=== PATIENT | male | born 1960 | race Caucasian/White ===

== ENCOUNTER 2020-09-08 11:04 | Inpatient (IN) | payer MEDICARE, BC, SELFPAY ==
[2020-09-08 11:13] VITALS: BP 131/92; PULSE 105; RESP 16; TEMP 36.6; O2SAT 98; BMI 22.1
--- NOTE | 2020-09-08 11:25 | W.ED.PSYCH ---
HPI - Psych General: Chief Complaint: Psychiatric Symptoms Stated Complaint: SI Time Seen by Provider: 09/08/20 11:15 History of Present Illness: HPI Narrative: The patient is a 60-year-old male with past medical history PTSD who comes to the ER complaining of suicidal ideations. Last night he had a plan to shoot himself and has access to guns. He says he has chronic pain from an injury 5 years ago and has basically hated his house for the past 5 years. His PCP prescribed him 0.25 mg Xanax approximately a month ago and he says he has been in a fog ever since then does not remember anything. He spoke to his therapist yesterday and says he felt fine after then thought about what they talked about and has felt suicidal since. He has not been admitted for mental health issues before. Denies alcohol and drugs. MD complaint: suicidal ideation and feels depressed Duration: constant History of same: Yes Relieving factors: none Context: significant life stressor Associated psychiatric symptoms: depression and suicidal ideation Associated symptoms: Reports no associated symptoms, depression and suicidal ideation If self harm: admits thoughts of self harm and has plan Review of Systems General: Reports: 10 or more systems reviewed and unremarkable except in HPI and below Const: Denies: fatigue Eyes: Denies: change in vision, blurry vision or eye redness ENMT: Denies: throat pain, swelling of lips/tongue, ear or mastoid pain or nasal congestion Card: Denies: chest pain, palpitations, irregular heart rhythm, edema, dyspnea on exertion or orthopnea Resp: Denies: dyspnea, productive cough or non-productive cough GI: Denies: abdominal pain, diarrhea or GI cramping : Denies: flank pain, urinary frequency or urinary urgency Musc: Denies: neck pain, back pain, extremity pain, joint pain, joint redness, limited range of motion or muscle weakness Skin/Breast: Denies: rash, pruritus, erythema, skin pain or skin tenderness Neuro: Denies: headache(s), numbness in extremities, weakness in extremities, sensory changes, difficulty walking, dizziness, confusion or Slurred speech present Psych: Reports: anxiety, depression and suicidal ideation Endo: Denies: polyuria All/Imm: Denies: urticaria, throat swelling or tongue swelling PFSH ED PFSH: Social History (Updated 09/08/20 @ 11:25 by John Turner RN) Smoking and tobacco status: current every day smoker cigarettes Packs smoked per day: 1 Alcohol intake: former Substance/Drug Use: former Adopted: No Caregiver/support person: No Marital status: Single Physical Exam Const: COMMON NORMALS: no acute distress, average body habitus, patient oriented x3, no limitations, healthy appearing, alert and well nourished GENERAL APPEARANCE: cooperative, comfortable, well kempt and well developed ORIENTATION/CONSCIOUSNESS: Yes awake, Yes oriented to person, Yes oriented to place and Yes oriented to time HENMT: COMMON NORMALS: normocephalic, external ears normal and Normal external nose present HEAD & SCALP: normal to inspection and normocephalic NOSE: Normal external nose present EXTERNAL EAR: Yes external ears normal MOUTH: Normal oral and palatal mucosa present THROAT: posterior oropharynx normal Eye: COMMON NORMALS: Equal, round and reactive pupils present and EOMs intact bilaterally GENERAL EYE: appearance normal, both eyes and all related structures PUPIL: Yes Equal, round and reactive pupils present Neck/C-Spine: COMMON NORMALS: full ROM, no lymphadenopathy, no meningeal signs and no JVD GENERAL: Yes normal visual inspection Lymph: LYMPHATIC: no lymphadenopathy noted Chest: COMMONS NORMALS: normal inspection of the chest and normal palpation of entire chest wall Resp: COMMON NORMALS: normal respiratory effort, No retractions, No use of accessory muscles, clear to auscultation bilaterally and percussion normal EFFORT & INSPECTION: Yes able to speak in complete sentences AUSCULTATION: clear to auscultation bilaterally PERCUSSION: percussion normal Cardio: COMMON NORMALS: no JVD, regular rate, regular rhythm, S1 normal heart sound present, S2 normal heart sound present and Peripheral pulses 2+ throughout RATE: regular rate RHYTHM: regular rhythm HEART SOUNDS: S1 normal heart sound present and S2 normal heart sound present PERIPHERAL PULSES: Peripheral pulses 2+ throughout GI: COMMON NORMALS: Normal to inspection, nondistended, normoactive bowel sounds present, Soft to palpation, non-tender and no masses INSPECTION: Yes normal to inspection PALPATION: Yes Soft to palpation : COMMON NORMALS: Yes no CVA tenderness BLADDER/KIDNEY EXAM: Yes no CVA tenderness Back/Pelvis: COMMON NORMALS: no CVA tenderness, thoracic and lumbar spine normal to inspection, no thoracic nor lumbar tenderness and thoraco-lumbar ROM normal Extremity: COMMON NORMALS: normal to inspection, full ROM, capillary refill normal, no joint enlargement and no pedal edema GENERAL: Yes normal exam except as noted Neuro: COMMON NORMALS: patient oriented x3, CN's II-XII intact bilaterally, moves all extremities, no focal motor deficits, no sensory deficits noted and gait normal SENSORIUM/ORIENTATION: Yes alert, Yes oriented to person, Yes oriented to place and Yes oriented to time MENINGEAL SIGNS: Yes no meningeal signs Psych: COMMON NORMALS: mental status grossly normal, Normal thought process present, cooperative, normal affect and speech normal APPEARANCE: Yes well kempt ATTITUDE: Yes calm SPEECH: Yes normal speech MOOD & AFFECT: Yes depressed mood and Yes anxious THOUGHT PROCESS: Normal thought process present THOUGHT CONTENT: Yes Suicidality present, No Homicidality present and No Hallucination(s) present Skin: COMMON NORMALS: no rashes or lesions noted GENERAL SKIN EXAM: no rashes or lesions noted Course Vital Signs: Vital signs: Vital Signs Temperature 97.9 F 09/08/20 11:13 Pulse Rate 105 H 09/08/20 11:13 Respiratory Rate 16 09/08/20 11:13 Blood Pressure 131/92 09/08/20 11:13 Pulse Oximetry 98 09/08/20 11:13 MDM - Psych MDM Narrative: Medical decision making narrative: The patient came to the ER depressed and has a history of PTSD complaining of suicidal ideations. Blood work is negative and he is stable for admission to the mental health unit. Dr. Singh accepts as inpatient Lab Data: Labs: Lab Results 09/08/20 09/08/20 09/08/20 Range/Units 11:45 11:45 12:52 WBC 10.9 H (4.0-10.0) 10^3/ uL RBC 4.83 (4.1-5.3) 10^6/u L Hgb 15.1 (11.7-16.6) g/dL Hct 45.2 (42.0-52.0) % MCV 93.6 (80-94) fL MCH 31.3 (28.0-34.0) pg MCHC 33.4 (30.0-36.0) g/dL RDW 13.6 (12.1-15.1) % Plt Count 277 (130-400) 10^3/c mm MPV 9.4 (7.4-10.4) fL Neut % (Auto) 76.9 % Lymph % (Auto) 12.7 % Chaves % (Auto) 7.6 % Eos % (Auto) 2.1 % Baso % (Auto) 0.5 % Neut # (Auto) 8.36 H (1.8-7.7) 10^3/u L Lymph # (Auto) 1.4 (0.8-4.8) 10^3/u L Chaves # (Auto) 0.8 (0.2-0.9) 10^3/u L Eos # (Auto) 0.2 (0.0-0.8) 10^3/u L Baso # (Auto) 0.1 (0.0-0.1) 10^3/u L Nucleated RBC % (a uto) 0 % Nucleated RBCs # 0.0 /100WBC Sodium 131 L (136-145) mmol/L Potassium 4.3 (3.5-5.1) mmol/L Chloride 95 L (98-107) mmol/L Carbon Dioxide 24 (22-29) mmol/L Anion Gap 16.3 (5-19) BUN 12 (6-20) mg/dL Creatinine 0.6 L (0.7-1.2) mg/dL GFR Calculation 138.4 H (90-130) mL/min Glucose 132 H (65-115) mg/dL Calculated Osmolal ity 274 L (285-295) mOsm/k g Calcium 8.8 (8.5-10.5) mg/dL Total Bilirubin 0.5 (0.15-1.2) mg/dL AST 21 (0-40) U/L ALT 23 (0-41) U/L Alkaline Phosphata se 141 H (40-130) IU/L Total Protein 6.7 (6.6-8.7) g/dL Albumin 4.2 (3.5-5.2) g/dL Globulin 2.5 (1.3-4.6) g/dL TSH 1.38 (0.27-4.20) uIU/ mL Urine Color Yellow (Yellow) Urine Appearance Sl hazy (CLEAR) Urine pH 6.5 (5-7) Ur Specific Gravit y 1.010 (1.005-1.030) Urine Protein Neg (Negative) Urine Glucose (UA) Norm (Normal) Urine Ketones 1+ H (Negative) Urine Blood Neg (Negative) Urine Nitrate Negative (Negative) Urine Bilirubin Neg (Negative) Urine Urobilinogen Neg (Negative) mg/dL Ur Leukocyte Cecy ase Negative (Negative) Urine RBC 5-10 H (0-2) /hpf Urine WBC 0-4 H (0-5) /hpf Ur Squamous Epith Cells 5-10 H (0-5) /hpf Amorphous Sediment Not Reportable Urine Bacteria 1+ H (NONE) /hpf Urine Mucus 1+ /hpf Salicylates < 0.3 L (3-10) mg/dL Urine Opiates Scre en (Negative) ng/mL Acetaminophen < 5.0 L (10-30) ug/mL Ur Barbiturates Sc reen (Negative) ng/mL Ur Phencyclidine S crn (Negative) ng/mL Ur Amphetamines Sc reen (Negative) ng/mL U Benzodiazepines Scrn (Negative) ng/mL Urine Cocaine Scre en (Negative) ng/mL U Marijuana (THC) Screen (Negative) ng/mL Ethyl Alcohol < 10 (0-10) mg/dL 09/08/20 Range/Units 12:52 WBC (4.0-10.0) 10^3/ uL RBC (4.1-5.3) 10^6/u L Hgb (11.7-16.6) g/dL Hct (42.0-52.0) % MCV (80-94) fL MCH (28.0-34.0) pg MCHC (30.0-36.0) g/dL RDW (12.1-15.1) % Plt Count (130-400) 10^3/c mm MPV (7.4-10.4) fL Neut % (Auto) % Lymph % (Auto) % Chaves % (Auto) % Eos % (Auto) % Baso % (Auto) % Neut # (Auto) (1.8-7.7) 10^3/u L Lymph # (Auto) (0.8-4.8) 10^3/u L Chaves # (Auto) (0.2-0.9) 10^3/u L Eos # (Auto) (0.0-0.8) 10^3/u L Baso # (Auto) (0.0-0.1) 10^3/u L Nucleated RBC % (a uto) % Nucleated RBCs # /100WBC Sodium (136-145) mmol/L Potassium (3.5-5.1) mmol/L Chloride (98-107) mmol/L Carbon Dioxide (22-29) mmol/L Anion Gap (5-19) BUN (6-20) mg/dL Creatinine (0.7-1.2) mg/dL GFR Calculation (90-130) mL/min Glucose (65-115) mg/dL Calculated Osmolal ity (285-295) mOsm/k g Calcium (8.5-10.5) mg/dL Total Bilirubin (0.15-1.2) mg/dL AST (0-40) U/L ALT (0-41) U/L Alkaline Phosphata se (40-130) IU/L Total Protein (6.6-8.7) g/dL Albumin (3.5-5.2) g/dL Globulin (1.3-4.6) g/dL TSH (0.27-4.20) uIU/ mL Urine Color (Yellow) Urine Appearance (CLEAR) Urine pH (5-7) Ur Specific Gravit y (1.005-1.030) Urine Protein (Negative) Urine Glucose (UA) (Normal) Urine Ketones (Negative) Urine Blood (Negative) Urine Nitrate (Negative) Urine Bilirubin (Negative) Urine Urobilinogen (Negative) mg/dL Ur Leukocyte Cecy ase (Negative) Urine RBC (0-2) /hpf Urine WBC (0-5) /hpf Ur Squamous Epith Cells (0-5) /hpf Amorphous Sediment Urine Bacteria (NONE) /hpf Urine Mucus /hpf Salicylates (3-10) mg/dL Urine Opiates Scre en Negative (Negative) ng/mL Acetaminophen (10-30) ug/mL Ur Barbiturates Sc reen Negative (Negative) ng/mL Ur Phencyclidine S crn Negative (Negative) ng/mL Ur Amphetamines Sc reen Negative (Negative) ng/mL U Benzodiazepines Scrn Negative (Negative) ng/mL Urine Cocaine Scre en Negative (Negative) ng/mL U Marijuana (THC) Screen Positive H (Negative) ng/mL Ethyl Alcohol (0-10) mg/dL Discharge Plan Discharge Patient Disposition: Admitted As Inpatient Clinical Impression: Suicidal ideation Condition: Stable Coding Level of Care Code 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
[2020-09-08] MEDS: nicotine 21 mg Patch 1 PATCH TRANSDERMA (12:02)
[2020-09-08 12:04] LABS: Basophils # 0.1 10^3/uL (0.0-0.1); Basophils % 0.5 %; Eosinophils # 0.2 10^3/uL (0.0-0.8); Eosinophils % 2.1 %; Hematocrit 45.2 % (42.0-52.0); Hemoglobin 15.1 g/dL (11.7-16.6); Lymphocytes # 1.4 10^3/uL (0.8-4.8); Lymphocytes % 12.7 %; Mean Corpuscular HGB Conc 33.4 g/dL (30.0-36.0); Mean Corpuscular Hemoglobin 31.3 pg (28.0-34.0); Mean Corpuscular Volume 93.6 fL (80-94); Mean Platelet Volume 9.4 fL (7.4-10.4); Monocytes # 0.8 10^3/uL (0.2-0.9); Monocytes % 7.6 %; Neutrophils # 8.36 10^3/uL (1.8-7.7); Neutrophils % 76.9 %; Nucleated Red Blood Cells % 0 %; Platelet Count 277 10^3/cmm (130-400); Red Blood Count 4.83 10^6/uL (4.1-5.3); Red Cell Distribution Width 13.6 % (12.1-15.1); White Blood Count 10.9 10^3/uL (4.0-10.0)
[2020-09-08 12:31] LABS: Alanine Aminotransferase 23 U/L (0-41); Albumin Level 4.2 g/dL (3.5-5.2); Alkaline Phosphatase 141 IU/L (40-130); Anion Gap 16.3 (5-19); Aspartate Amino Transferase 21 U/L (0-40); Blood Urea Nitrogen 12 mg/dL (6-20); Calcium 8.8 mg/dL (8.5-10.5); Carbon Dioxide 24 mmol/L (22-29); Chloride 95 mmol/L (98-107); Globulin 2.5 g/dL (1.3-4.6); Glomerular Filtration Rate 138.4 mL/min (90-130); Glucose 132 mg/dL (65-115); Osmolality Calculated 274 mOsm/kg (285-295); Potassium 4.3 mmol/L (3.5-5.1); Sodium 131 mmol/L (136-145); Thyroid Stimulating Hormone 1.38 uIU/mL (0.27-4.20); Total Bilirubin 0.5 mg/dL (0.15-1.2); Total Protein 6.7 g/dL (6.6-8.7)
[2020-09-08 12:40] LABS: Acetaminophen < 5.0 ug/mL (10-30); Alcohol Level < 10 mg/dL (0-10); Salicylate < 0.3 mg/dL (3-10)
[2020-09-08 13:13] LABS: Add Urine Microscopic? YES; Bilirubin Urine Neg (Negative); Blood Urine Neg (Negative); Glucose Urine UA Norm (Normal); Ketones Urine 1+ (Negative); Leukocyte Esterase Urine Negative (Negative); Nitrate Urine Negative (Negative); Protein Urine Neg (Negative); Urine Appearance SL Hazy (CLEAR); Urine Color Yellow (Yellow); Urobilinogen Urine Neg (Negative); pH Urine 6.5 (5-7)
[2020-09-08 13:14] LABS: Add Urine Culture? No; Bacteria Urine 1+ /hpf; Mucus Urine 1+ /hpf; WBC Urine 0-4 /hpf (0-5)
[2020-09-08 13:15] LABS: Amphetamines Screen Urine Negative (Negative); Barbiturates Screen Urine Negative (Negative); Benzodiazepines Screen Urine Negative (Negative); Cocaine Screen Urine Negative (Negative); Opiate Screen Urine Negative (Negative); PCP Screen Urine Negative (Negative); THC Screen Urine Positive (Negative)
[2020-09-08 14:04] VITALS: BP 112/75; PULSE 87; RESP 16; TEMP 37; O2SAT 95
[2020-09-08 14:39] VITALS: BP 117/80; PULSE 98; RESP 20; TEMP 36.1; O2SAT 97
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
[2020-09-08 17:49] VITALS: RESP 16; O2SAT 98
[2020-09-08] MEDS: oxyCODONE 5 mg IR Tab/Cap 20 MG PO ×2 (17:49→23:57)
[2020-09-08] MEDS: duloxetine 30 mg Capsule PO (17:51)
--- NOTE | 2020-09-08 17:56 | PC.NURSE ---
prn 1749 administered oxycodon 20mg for pt c/o pain 8/10 on pain scale. will continue to monitor pt until end of shift.
[2020-09-08] MEDS: gabapentin 400 mg Capsule 800 MG PO (20:55)
[2020-09-08 20:56] VITALS: BP 108/66; PULSE 101; RESP 15; TEMP 36.4; O2SAT 96
[2020-09-08] MEDS: nicotine 2 mg Gum BUCCAL (21:00)
--- NOTE | 2020-09-08 21:00 | PC.NURSE ---
Earle Patch removed, earle gum given to pt
[2020-09-08] MEDS: trazodone 50 mg Tablet PO (22:44)
[2020-09-08] MEDS: hyDROXYzine 25 mg Capsule 50 MG PO (22:44)
[2020-09-08 23:57] VITALS: RESP 16; O2SAT 96
[2020-09-09] VITALS (7 sets, daily range): BP systolic 101–119; BP diastolic 69–82; PULSE 80–96; RESP 15–20; TEMP 36.6–37; O2SAT 96–98
[2020-09-09] MEDS: oxyCODONE 5 mg IR Tab/Cap 20 MG PO ×4 (05:23→23:43)
[2020-09-09] MEDS: gabapentin 400 mg Capsule 800 MG PO ×3 (08:58→20:26)
[2020-09-09] MEDS: duloxetine 30 mg Capsule PO ×3 (08:58→17:11)
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
[2020-09-09] MEDS: nicotine 21 mg Patch 1 PATCH TRANSDERMA (11:30)
--- NOTE | 2020-09-09 14:06 | PC.NURSE ---
prn 1128 administered oxycodone 20mg for pt c/o all over chronic joint pain. will continue to monitor pt.
--- NOTE | 2020-09-09 21:00 | PC.NURSE ---
NICOTINE PATCH REMOVED
[2020-09-09] MEDS: trazodone 50 mg Tablet PO (23:43)
[2020-09-10] VITALS (7 sets, daily range): BP systolic 100–109; BP diastolic 66–72; PULSE 86–98; RESP 17–18; TEMP 36.8–37.4; O2SAT 93–98
[2020-09-10] MEDS: nicotine 2 mg Gum BUCCAL ×2 (00:06→05:02)
--- NOTE | 2020-09-10 00:08 | PC.NURSE ---
PM ASSESSMENT PT V/S ARE WNL, DENIES SI/HI/AH/VH, PT COMPLAINS OF PAIN OF 6 AT BASELINE, MED NURSE NOTIFIED. PT IS COOPERATIVE, CALM, AND EASY TO INTERACT WITH. THOUGHT PROCESS APPROPRIATE.
[2020-09-10] MEDS: acetaminophen 325 mg Tablet 650 MG PO ×3 (05:02→22:04)
--- NOTE | 2020-09-10 05:13 | PC.NURSE ---
PAIN PT HAS CONSTANT PAIN IN HIS HIPS, NECK, AND FEET. HE RECEIVED HIS PAIN MEDICATION AT 2343, OXYCODONE IR 20MG PO Q6H PRN, HE HAS BEEN AWAKE OVER AN HOUR, APPROACHED THE DESK WITH TEARS IN HIS EYES, AND SAID, i NEED TO TALK TO THE DOCTOR, MY PAIN IS NOT RELIEVED, THIS MEDICINE IS NOT WORKING LONG ENOUGH TO GET TO THE NEXT TIME IT IS DUE. I HURT SO BAD. NURSE GAVE PT TYLENOL 650 PO TO HELP HOLD HIM TIL HE CAN RECEIVE HIS NEXT DOSE OF OXYCODONE AT 0543. PT RETURNED TO BED, REPOSITIONED HIM WITH PILLOWS, APPLIED A HEAT COMPRESS TO THE HIP, AND HE IS RESTING. WILL CONSULT WITH MED NURSE TO REMOVE COMPRESS AND ADMINISTER PAIN MEDICATION AT THE TIME IS AVAILABLE.
[2020-09-10] MEDS: oxyCODONE 5 mg IR Tab/Cap 20 MG PO ×4 (05:47→22:55)
--- NOTE | 2020-09-10 07:38 | PC.RESP ---
SMOKING CESSATION INFORMATION SENT TO PATIENT.
[2020-09-10] MEDS: gabapentin 400 mg Capsule 800 MG PO ×3 (08:20→20:26)
[2020-09-10] MEDS: duloxetine 60 mg Capsule PO (08:20)
[2020-09-10] MEDS: nicotine 21 mg Patch 1 PATCH TRANSDERMA (09:20)
--- NOTE | 2020-09-10 12:50 | P.PN_ITS ---
Subjective NPU Subjective: Interval history: Reports some improvement in his depressive and anxiety symptoms Denies any interval reexperiencing symptoms Continues to report some difficulty with sleep Denies any interval psychotic symptoms States that he is compliant with his medication and denies any medication side effects Reports improved appetite Mental Status Exam MSE Comments: Eating in the day room, appropriately groomed and dressed wearing hospital scrubs, calm, cooperative, good eye contact Psychomotor activity is neither increased or decreased, no agitation Speech is normal rate and volume, spontaneous, fair articulation, not pressured I feel pretty good, full range of affect, not labile Alert and oriented to person, place, time, situation Memory and concentration appear to be intact per interview Thought process, linear, no flight of ideas, no looseness of associations Thought content, no delusions, no hallucinations, no suicidal or homicidal ideation Insight and judgment appear to be intact Vitals/I&O/Wt Last Vital Signs Temp 98.2 F 09/10/20 05:57 Pulse 98 09/10/20 05:57 Resp 18 09/10/20 10:47 BP 100/67 09/10/20 05:57 Pulse Ox 96 09/10/20 05:57 Data NPU : 09/08/20 11:45 09/08/20 11:45 A&P Assessment and plan (1) Suicidal ideation: Status: Acute (2) Depressive disorder: Status: Acute (3) Anxiety disorder: Status: Acute Qualifiers: Anxiety disorder type: unspecified anxiety disorder Qualified Code(s): F41.9 - Anxiety disorder, unspecified Additional A&P Information Improving mood and anxiety, denies any interval PTSD symptoms CONTINUE current medication, continue to monitor Involuntary Hold Information 96 Hour Hold: 96 Hour Involuntary Admission: No Attestations NPU Medical Necessity Statement*: Continues to require psychiatric hospitalization for medication stabilization Coding Level of Care Code 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
[2020-09-10] MEDS: duloxetine 30 mg Capsule PO (18:51)
[2020-09-11] VITALS (7 sets, daily range): BP systolic 101–108; BP diastolic 65–68; PULSE 81–88; RESP 16–18; TEMP 36.6–36.7; O2SAT 95–98
[2020-09-11] MEDS: acetaminophen 325 mg Tablet 650 MG PO (02:34)
[2020-09-11] MEDS: nicotine 2 mg Gum BUCCAL ×3 (03:28→22:37)
[2020-09-11] MEDS: oxyCODONE 5 mg IR Tab/Cap 20 MG PO ×4 (05:22→23:05)
[2020-09-11] MEDS: duloxetine 60 mg Capsule PO ×2 (08:49→17:20)
[2020-09-11] MEDS: gabapentin 400 mg Capsule 800 MG PO ×3 (08:49→20:39)
--- NOTE | 2020-09-11 10:30 | P.PN_ITS ---
Subjective NPU Subjective: Interval history: Patient mostly focused on somatic complaints but reports improved depressive and anxiety symptoms Denies any interval panic symptoms Denies any interval suicidal ideation Observed to be more interactive on the unit Reports being compliant with his medication, denies any medication side effects Mental Status Exam MSE Comments: Lying in his bed but eventually sits up for interview, polite, interactive, appropriately groomed Psychomotor activity is neither increased or decreased, no agitation Speech is normal rate and volume, spontaneous, fair articulation, not pressured I feel good, full range of affect, not labile Alert and oriented to person, place, time, situation Memory and concentration appear to be intact per interview Thought process, linear, no flight of ideas, no looseness of associations Thought content, no delusions, no hallucinations, no suicidal or homicidal ideation Insight and judgment appear to be intact Vitals/I&O/Wt Last Vital Signs Temp 98.1 F 09/11/20 06:00 Pulse 88 09/11/20 06:00 Resp 18 09/11/20 06:00 BP 101/67 09/11/20 06:00 Pulse Ox 97 09/11/20 06:00 Data NPU : 09/08/20 11:45 09/08/20 11:45 A&P Assessment and plan (1) Suicidal ideation: Status: Acute (2) Depressive disorder: Status: Acute (3) Anxiety disorder: Status: Acute Qualifiers: Anxiety disorder type: unspecified anxiety disorder Qualified Code(s): F41.9 - Anxiety disorder, unspecified Additional A&P Information Ongoing improvement INCREASE to duloxetine 60 mg twice daily targeting depressive and anxiety symptoms Involuntary Hold Information 96 Hour Hold: 96 Hour Involuntary Admission: No Attestations NPU Medical Necessity Statement*: Continues to require psychiatric hospitalization for medication stabilization Coding Level of Care Code Acute Medical Review Specialist for [facility] Fwd Diagnoses Suicidal ideation R45.851 Depressive disorder F32.9 Anxiety disorder F41.9 Anxiety disorder type: unspecified anxiety disorder
[2020-09-11] MEDS: nicotine 21 mg Patch 1 PATCH TRANSDERMA (12:27)
--- NOTE | 2020-09-11 21:00 | PC.NURSE ---
real patch removed
[2020-09-12] VITALS (7 sets, daily range): BP systolic 108–124; BP diastolic 66–77; PULSE 81–93; RESP 17–21; TEMP 36.6–36.8; O2SAT 95–98; BMI 22.1
[2020-09-12] MEDS: acetaminophen 325 mg Tablet 650 MG PO (03:23)
[2020-09-12] MEDS: nicotine 2 mg Gum BUCCAL (03:24)
[2020-09-12] MEDS: oxyCODONE 5 mg IR Tab/Cap 20 MG PO ×4 (04:57→23:05)
[2020-09-12] MEDS: gabapentin 400 mg Capsule 800 MG PO ×3 (08:05→20:28)
[2020-09-12] MEDS: duloxetine 60 mg Capsule PO ×2 (08:06→20:27)
[2020-09-12] MEDS: nicotine 21 mg Patch 1 PATCH TRANSDERMA (08:17)
--- NOTE | 2020-09-12 12:20 | PM.NPN ---
Subjective NPU Subjective: Interval history: Reports significant improvement in mood symptoms, denies any interval depressive symptoms Denies any interval suicidal ideation Reports tolerating medication change well with no reports of any medication side effects Mental Status Exam MSE Comments: Sitting in the dining room, calm, cooperative, appropriately groomed and dressed Psychomotor activity is neither increased or decreased, no agitation Speech is normal rate and volume, spontaneous, fair articulation, not pressured I feel good, full range of affect, not labile Alert and oriented to person, place, time, situation Memory and concentration appear to be intact per interview Thought process, linear, no flight of ideas, no looseness of associations Thought content, no delusions, no hallucinations, no suicidal or homicidal ideation Insight and judgment appear to be intact Vitals/I&O/Wt Last Vital Signs Temp 98.1 F 09/12/20 06:00 Pulse 81 09/12/20 06:00 Resp 18 09/12/20 11:11 BP 108/66 09/12/20 06:00 Pulse Ox 96 09/12/20 06:00 Weight last 48 hrs Weight 68.039 kg Data NPU : 09/08/20 11:45 09/08/20 11:45 A&P Assessment and plan (1) Suicidal ideation: Status: Acute (2) Depressive disorder: Status: Acute (3) Anxiety disorder: Status: Acute Qualifiers: Anxiety disorder type: unspecified anxiety disorder Qualified Code(s): F41.9 - Anxiety disorder, unspecified Additional A&P Information Improved CONTINUE current medication, continue to monitor Involuntary Hold Information 96 Hour Hold: 96 Hour Involuntary Admission: No Attestations NPU Medical Necessity Statement*: Continues to require psychiatric hospitalization for medication stabilization, coordination for safe discharge Coding Level of Care Code Acute Cold Type 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
[2020-09-13] MEDS: nicotine 2 mg Gum BUCCAL (02:54)
[2020-09-13 05:02] VITALS: RESP 20
[2020-09-13] MEDS: oxyCODONE 5 mg IR Tab/Cap 20 MG PO (05:02)
[2020-09-13 06:00] VITALS: BP 100/67; PULSE 83; RESP 20; TEMP 36.7; O2SAT 96
[2020-09-13] MEDS: duloxetine 60 mg Capsule PO (07:57)
[2020-09-13] MEDS: gabapentin 400 mg Capsule 800 MG PO (07:57)
--- NOTE | 2020-09-13 08:06 | PC.NURSE ---
AM note Patient sitting in the day room, patient is pleasant, watching TV. Denies SI,HI AH,VH
[2020-09-13] MEDS: nicotine 21 mg Patch 1 PATCH TRANSDERMA (08:55)
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
[2020-09-13 09:52] VITALS: BP 100/67; PULSE 83; RESP 20; TEMP 36.7; O2SAT 96
== END 2020-09-13 11:53 | disposition home or self-care (01) | DRG 881 ==
LOC: ER 13:42 → NP 13:43
PROVIDERS: Admitting Provider Psychiatry & Neurology Psychiatry; Emergency Provider Family Medicine; PCP Family Medicine; Visit Provider Psychiatry & Neurology Psychiatry
DX: F32.9 Major depressive disorder, single episode, unspecified (principal); R45.851 Suicidal ideations; F41.9 Anxiety disorder, unspecified; F10.21 Alcohol dependence, in remission; F17.210 Nicotine dependence, cigarettes, uncomplicated; Z79.891 Long term (current) use of opiate analgesic; G89.29 Other chronic pain
CPT/HCPCS: 80053; 80306; 80307; 81001; 84443; 85025; 99285

== ENCOUNTER → 2021-04-19 14:15 | Outpatient (BNVA) | payer MEDICARE, SELFPAY | PROVIDERS: PCP Family Medicine; Visit Provider Orthopaedic Surgery | DX: Z20.822 Contact with and (suspected) exposure to COVID-19 (principal) | CPT/HCPCS: 87635 ==

== ENCOUNTER 2021-04-25 15:23 | Observation (INO) | payer MEDICARE, BC, SELFPAY ==
[2021-04-20 13:36] VITALS: BMI 23.6
--- NOTE | 2021-04-20 14:05 | P.ANESASSM_ITS ---
Pre-Anesthetic Assessment Height/Weight: Height 1.75 m Weight 72.575 kg Operation Date: 04/25/21 09:30 Proposed Procedures p Right Total Hip Arthroplasty 28593/m87.051(Right) - Abhi John MD Familial anesthetic complications: None Was Beta Melissa taken within 24 hours: N/A Was Clonidine taken within 24 hours: N/A Social Tobacco and No alcohol Exam alert, oriented x 3 and regular rate & rhythm rhonchi Airway Submandibular: within normal limits Cervical ROM: Other (Some limitation from prior surgery) Dentition: chipped Pulmonary Chronic Obstructive Pulmonary Disease GI Gastroesophageal Reflux Disease [facility] Osteoarthritis/DJD Neuropsych Anxiety and Depression Anesthetic Plan ASA status: 3 Anesthesia: Regional (specify below) (SAB) Risk of > 500 ml blood loss (7ml/kg in children): Yes, adequate IV access and fluids planned Medications/Allergies Home Medications Medication Instructions Recorded Confirmed Last Taken Type gabapentin 800 mg tablet 800 mg PO TID tab 09/10/19 04/20/21 09/08/20 History oxycodone 20 mg tablet 20 mg PO Q6H PRN MDD 80 MG 09/08/20 04/20/21 09/08/20 History duloxetine 60 mg capsule,delayed 60 mg PO 0900,2100 #60 cap 09/13/20 04/20/21 Unknown Rx release omeprazole 20 mg tablet,delayed 20 mg PO DAILY 04/20/21 04/20/21 Unknown History release Allergies Allergy/AdvReac Type Severity Reaction Status Date / Time No Known Allergies Allergy Verified 04/20/21 13:31 REPLACED BY [facility] Anesthesia Social History Smoking and tobacco status: current every day smoker cigarettes Packs smoked per day: 1 Alcohol intake: former Adopted: No Caregiver/support person: No Marital status: Single Data Anesthesia Cardiac Studies: No Data to Display
[2021-04-25] VITALS (25 sets, daily range): BP systolic 90–148; BP diastolic 55–88; PULSE 70–106; RESP 15–20; TEMP 36.2–36.7; O2SAT 93–100
[2021-04-25] MEDS: sodium chloride 0.9% 1,000 ML 30 ML IV (08:41)
[2021-04-25] MEDS: acetaminophen 500 mg Tablet 1000 MG PO ×2 (08:42→16:25)
[2021-04-25] MEDS: CELEcoxib 200 mg Capsule 400 MG PO (08:42)
--- NOTE | 2021-04-25 10:43 | P.ANESUD_ITS ---
Pre-Anesthetic Update Pre-Anesthetic Assessment: Date of Surgery/Procedure: 04/25/21 Preop Nazanin gnosis: Avascular necrosis right hip Proposed Procedure: Operation Date: 04/25/21 12:05 Proposed Procedures p Right Total Hip Arthroplasty 54584/m87.051(Right) - Abhi John MD Any changes to Pre-Anesthetic Assessment?: No Last Intake: Intake Last Liquid Date 04/24/21 Last Liquid Time 22:00 Last Solid Date 04/24/21 Last Solid Time 22:00 Vitals: Temperature 97.7 F 04/25/21 08:17 Temperature Source Tympanic 04/25/21 08:17 Pulse Rate 78 04/25/21 08:17 Respiratory Rate 16 04/25/21 08:17 Blood Pressure 112/70 04/25/21 08:17 Blood Pressure Nani n 84 04/25/21 08:17 Pulse Oximetry 96 04/25/21 08:17 Oxygen Delivery Me thod 04/25/21 08:20 Exam: Pre-Anes Outpt Exam: alert, oriented x 3, clear to auscultation bilaterally and regular rate & rhythm Cardiac Studies: No Data to Display
--- NOTE | 2021-04-25 11:40 | W.PM.OPSFHP ---
Same Day Surgery H&P Indication for Procedure/HPI DATE OF PROCEDURE: April 25, 2021 CHIEF COMPLAINT/INDICATIONFOR SURGICAL PROCEDURE: Avascular necrosis right hip here for right total hip arthroplasty PREOP DIAGNOSIS: Avascular necrosis right hip PLANNED PROCEDURE: Operation Date: 04/25/21 12:05 Proposed Procedures p Right Total Hip Arthroplasty 44839/m87.051(Right) - Abhi John MD Medications/Allergies* Home Medications Medication Instructions Recorded Confirmed Type gabapentin 800 mg tablet 800 mg PO TID tab 09/10/19 04/25/21 History oxycodone 20 mg tablet 20 mg PO Q6H PRN MDD 80 MG 09/08/20 04/25/21 History omeprazole 20 mg tablet,delayed 20 mg PO DAILY 04/20/21 04/25/21 History release Allergies/Adverse Reactions Allergy/AdvReac Type Severity Reaction Status Date / Time No Known Allergies Allergy Verified 04/20/21 13:31 Current Medications: Generic Name Dose Route Start Last Admin Trade Name Freq PRN Reason Stop Dose Admin Sodium Chloride 1,000 mls @ 30 mls/hr 04/25/21 08:00 04/25/21 08:41 Sodium Chloride 0.9% IV 04/26/21 07:59 30 mls/hr .Q24H OLEG Administration Pertinent History/Comorbid Conditions* Social History Smoking and tobacco status: current every day smoker cigarettes Packs smoked per day: 1 Alcohol intake: former Adopted: No Caregiver/support person: No Marital status: Single Pertinent Exam Findings alert, oriented x 3, clear to auscultation bilaterally, regular rate & rhythm and operative site marked Recommendations Surgery/Procedure today Coding Level of Care Code Acute Bilingual Recruiter for Palak Schwartz
--- NOTE | 2021-04-25 14:34 | P.OP_ITS ---
Operative Report Date of procedure: April 25, 2021 Pre-op diagnosis: Preop Diagnosis Avascular necrosis right hip Post-op diagnosis: same Post-op diagnosis: Same Post-op findings: Same Procedure done: Right total hip arthroplasty Implants: 1) [place] 56 mm Trident 2 solid back acetabular shell 2) Size 8 [place] 127 degree neck angle Accolade 2 stem 3} 28mm -4 ceramic femoral head 4} MDM metal liner Specimens removed/disposition: Femoral head was sent for pathology Pathology: none sent Surgeon: Abhi John Estimated blood loss (mL): 250 Complications: None Condition: stable Disposition: PACU Procedure: The patient was taken to the operating room and anesthesia provided by the anesthesia service. The patient was placed in the lateral position on a pegboard. A timeout was performed. The patient was draped in the usual fashion. A 15 cm long incision was made beginning just proximal to the greater trochanter and extending posteriorly to a point just distal to the trochanter on the posterior border of the trochanter. Dissection was carried down with electrocautery through the subcutaneous fat to the fascia stuart which was divided proximally and distally with curved scissors. The anterior two thirds of the gluteus medius and minimus were elevated off the hip with electrocautery. The capsule was divided in a H-like fashion. The hip was dislocated and a neck cut made just above the level of the lesser trochanter. Exposure of the acetabulum was facilitated with the acetabular retractors. Remnants of labrum and peripheral osteophytes were removed with electrocautery and a rongeur. A reamer 2 mm under the size the femoral head was utilized to ream medially to the base of the palm and are. Reaming was then increased in 1 mm intervals until a healthy rim a trabecular bone was encountered. The rim was touched with the reamer the size of the final acetabular shell to be placed. A final Trident 2 acetabular cup of the same size as the final reaming was press- fit into place. The ADM liner was secured. Attention was then focused on the femur. The canal was localized with a canal finder. Broaching was then accomplished until a stable broach size was obtained. A trial reduction with the head and neck provided excellent stability. The wound was irrigated with saline and antibiotic solution. The final [place] Accolade II stem was press-fit into place. The femoral head was placed and the hip was reduced. The hip was brought through range of motion and found to be free of impingement and stable. The anterior capsule was reapproximated with 1 Ethibond. The gluteus medius and minimus were repaired through bone with 5 Ethibond and reinforced with 1 Ethibond. The fascial stuart was closed with a running 0 Stratafix suture. Deep pelvic tissues were closed with 2-0 Stratafix and the skin with a running 4-0 l Stratafix. The skin was covered with a Prineo dressing and op site dressings.
[2021-04-25] MEDS: fentaNYL 50 mcg/mL INJ 2mL IVP (14:40)
--- NOTE | 2021-04-25 14:42 | XRR_ITS ---
PROCEDURE INFORMATION: Exam: XR Right Hip Exam date and time: 04/25/2021 2:42 PM Age: 60 years old Clinical indication: Device placement; Other: Right total hip; Prior surgery; Surgery date: Post-operative (0-2 days) TECHNIQUE: Imaging protocol: XR Right hip. Views: 1 view hip with pelvis when performed. COMPARISON: MR hip RT wo con* [id number] 03/18/2021 1:58 PM FINDINGS: Bones/joints: Right hip hemiarthroplasty noted with femoral stem component in expected alignment. Osseous structures are intact. Soft tissues: Unremarkable. XR/XR hip RT 1V wo/w pel [id number] IMPRESSION: Right hip hemiarthroplasty noted in expected alignment.
[2021-04-25] MEDS: HYDROmorphone 1 mg/mL INJ 1 mL 0.5 MG IVP (14:53)
--- NOTE | 2021-04-25 16:05 | ANE.PACU2 ---
Inpatient post-anesthesia follow up: Airway intact: Yes Vital signs: Temperature 97.2 F Pulse Rate 81 Respiratory Rate 18 Blood Pressure 122/68 Pulse Oximetry 95 Oxygen Delivery Me thod Room Air Oxygen Flow Rate 6 Fraction of Inspir ed Oxygen Hydration adequate: Yes Nausea and vomiting: No Pain level: 5 Mental status: Baseline
--- NOTE | 2021-04-25 16:24 | PC.NURSE ---
received pt from PACU at 1602, this nurse went to connect the SCD machine to the pt, pt only had 1 intermittent pneumatic compression sleeve one the left lower extremity.
[2021-04-25] MEDS: morphine 4 mg/mL SDV 1 mL IVP ×5 (16:25→23:39)
[2021-04-25] MEDS: oxyCODONE 5 mg IR Tab/Cap 20 MG PO ×2 (16:26→20:38)
[2021-04-25] MEDS: nicotine 21 mg Patch 1 PATCH TRANSDERMA (18:40)
[2021-04-25] MEDS: sodium chloride 0.9% 1,000 ML 100 ML IV (19:39)
[2021-04-25] MEDS: duloxetine 60 mg Capsule PO (20:39)
[2021-04-25] MEDS: gabapentin 400 mg Capsule 800 MG PO (20:39)
[2021-04-25] MEDS: CELEcoxib 200 mg Capsule PO (20:39)
[2021-04-26] VITALS (10 sets, daily range): BP systolic 110–115; BP diastolic 70–76; PULSE 87–96; RESP 15–17; TEMP 36.6–36.7; O2SAT 94–98
[2021-04-26] MEDS: oxyCODONE 5 mg IR Tab/Cap 20 MG PO ×4 (00:47→13:48)
[2021-04-26] MEDS: acetaminophen 500 mg Tablet 1000 MG PO ×2 (01:28→09:00)
[2021-04-26] MEDS: morphine 4 mg/mL SDV 1 mL IVP ×3 (03:26→12:11)
[2021-04-26 04:34] LABS: Hemoglobin 11.9 g/dL (11.7-16.6)
[2021-04-26] MEDS: sodium chloride 0.9% 1,000 ML 100 ML IV (07:17)
[2021-04-26] MEDS: aspirin 325 mg EC Tablet PO (08:59)
[2021-04-26] MEDS: pantoprazole DR 40 mg Tablet PO (09:00)
[2021-04-26] MEDS: CELEcoxib 200 mg Capsule PO (09:00)
[2021-04-26] MEDS: gabapentin 400 mg Capsule 800 MG PO (09:35)
--- NOTE | 2021-04-26 12:26 | P.DS_ITS ---
Discharge Providers Date of Admission: 04/25/21 15:23 Date of Discharge: April 26, 2021 Attending Provider at Admission: Abhi John MD Attending Provider at Discharge: Abhi John MD Primary Care Provider: Rosalia Rendon DO Diagnoses at Discharge Discharge Diagnosis (1) Status post right hip replacement: Status: Acute (2) Avascular necrosis of right femur: Status: Resolved Reason for Visit Reason for Visit: avascular necrosis of femoral head right Hospital Course Hospital Course The patient tolerated surgery well. They remained hemodynamically stable. They was begun on aspirin and sequential compression dressing for DVT prophylaxis. The patient was mobilized with therapy beginning the day of surgery and by the first postoperative day independent with the walker. As the pain was adequately controlled and they were fully mobile they were discharged home. Physical Exam Narrative: On the day of discharge the hip incision was clean. The incision was free of drainage. They had no particular swelling about the thigh or distal. No distal neurovascular deficits were noted. Urinary Catheter Management: Alvarado: Cath Placed During This Visit: yes Reason for Continuing Indwelling Catheter: Perioperative Use in Selected Surgeries Urinary Catheter Date of Insertion: 04/25/21 Urinary Catheter Time of Insertion: 12:50 Discharge Data Studies Completed and Pending Completed Studies During Hospitalization Category Date Time Status XR hip RT 1V wo/w pel [id number] Routine Exams 04/25/21 14:42 Completed Pending at discharge Category Date Time Status Pathology: Surgical [PTH] Routine Pth 04/25/21 14:33 Received Radiology Impressions Hip X-Ray 04/25/21 14:42 IMPRESSION: Right hip hemiarthroplasty noted in expected alignment. Laboratory Results Hgb 11.9 g/dL (11.7-16.6) 04/26/21 04:21 Vitals Last Vital Signs Temp 98.0 F 04/26/21 09:07 Pulse 90 04/26/21 09:07 Resp 16 04/26/21 12:11 BP 110/76 04/26/21 09:07 Pulse Ox 94 04/26/21 12:11 Discharge Plan Discharge Patient Disposition: Home Condition: Stable Prescriptions: New oxycodone 5 mg Tablet 20 mg PO Q4H PRN (Reason: Pain) 7 Days Qty: 60 0RF aspirin 325 mg Tablet,Delayed Release (Dr/Ec) 325 mg PO DAILY 30 Days Qty: 30 0RF celecoxib 200 mg Capsule 200 mg PO Q12H 14 Days Qty: 28 0RF acetaminophen 500 mg Tablet 1,000 mg PO Q8H 14 Days Qty: 84 0RF Continued gabapentin 800 mg tablet 800 mg PO TID 0RF duloxetine 60 mg Capsule,Delayed Release(Dr/Ec) 60 mg PO 0900,2100 Qty: 60 0RF omeprazole 20 mg Tablet,Delayed Release (Dr/Ec) 20 mg PO DAILY 0RF Discontinued oxycodone 20 mg tablet 20 mg PO Q6H MDD 80 MG PRN (Reason: Pain) 0RF Discharge Orders: Discharge Order (Routine); Ordered 04/26/21 Ordered By: Abhi John Other Ambulatory Orders: DME: Walker (Order) Location: None Selected Ordered By: Abhi John Referrals: Abhi John MD [Physician] - 04/29/21 8:00 am Discharge Diet: Advance as tolerated Discharge Activity: Use walker/crutches as instructed Patient Instructions: Precautions after Total Joint Replacement Surgery (DC), Total Hip Replacement (DC), Revision Total Joint Arthroplasty (DC), Opioid Safety Discharge Attestations Time Spent in Discharge Care*: other Status at Discharge: Cognitive status at discharge: cognitively intact , Behavioral status at discharge: cooperative , Quality Metrics Clinical Quality Measures [ No reported AMI, CVA or VTE this stay] Coding Level of Care Code Acute Chg FW DC note Diagnoses Status post right hip replacement Z96.641 Avascular necrosis of right femur M87.051
== END 2021-04-26 15:55 | disposition home or self-care (01) ==
LOC: OBGYN 15:24
PROVIDERS: Admitting Provider Orthopaedic Surgery; PCP Family Medicine; Visit Provider Orthopaedic Surgery
PROC: (CPT 27130; principal; 2021-04-25 11:50)
DX: M87.051 Idiopathic aseptic necrosis of right femur (principal); J44.9 Chronic obstructive pulmonary disease, unspecified; K21.9 Gastro-esophageal reflux disease without esophagitis; F17.210 Nicotine dependence, cigarettes, uncomplicated
CPT/HCPCS: 27130; 36415; 51702; 73501; 85018; 88304; 88311; 97110; 97116; 97161; 97165; C1776; G0378; J0690; J1170; J1580; J2250; J2270; J2704; J3010; J3490; J7030

== ENCOUNTER 2021-05-03 14:15 | Emergency (ER) | payer MEDICARE, BC, SELFPAY ==
[2021-05-03 14:21] VITALS: BP 121/76; PULSE 109; RESP 16; TEMP 36.9; O2SAT 97; BMI 22.9
--- NOTE | 2021-05-03 14:36 | USCV_ITS ---
Kota Bush Age: 60 Gender: M : 1960 Exam Date: 05/03/2021 14:50 Ordering Phys: Donavan Law DO Technologist: Britany Horne Exam Location: [facility] [place] Indication: POST RT HIP SURGERY HISTORY: Post Rt. Hip surgery. Rt. leg hurts and is swollen PROCEDURES: The venous duplex Doppler examination of both lower extremities was performed in the standard fashion. The following venous structures were evaluated: common femoral vein, profunda vein, proximal portion of the greater saphenous vein, superficial femoral vein, and the popliteal vein. In addition, the posterior tibial and peroneal trunk were evaluated. Serial compression, augmentation maneuvers, and spectral Doppler flow evaluation were performed. FINDINGS: Normal 2-D Doppler and augmentation and compressibility throughout the lower extremity venous structures. Additional imaging through the proximal calf veins also reveals no thrombus. Limited evaluation of the greater saphenous vein is patent with no thrombus.. CONCLUSIONS No evidence of right lower extremity DVT. No evidence of left lower extremity DVT. Enlarged inguinal lymph nodes with fatty sean nonspecific but likely reactive Juan José Huerta MD (Electronically Signed) Final Date: 03 May 2021 17:35 S
--- NOTE | 2021-05-03 14:36 | XR_ITS ---
WS: [id number] Exam: XR chest 1V portable [id number] Date/Time of Exam: 05/03/2021 2:29 PM Reason For Exam: dyspnea/cough Comparison 06/03/2016. The lungs are clear and fully inflated. Normal cardiomediastinal silhouette. No pleural effusions. Ol d left clavicle fracture. Fusion hardware partially visualized in the lower C-spine. XR/XR chest 1V portable [id number] IMPRESSION: 1. Negative chest.
--- NOTE | 2021-05-03 14:36 | W.ED.EXTPRO ---
HPI - Extremity Problem General: Chief complaint: Extremity Problem,Nontraumatic Stated complaint: Right hip swollen after surgery Time Seen by Provider: 05/03/21 14:35 History of Present Illness: 60-year-old male presents emergency room complaining of swelling of his right foot. A week ago he had a right hip arthroplasty he has a lot of pain in the hip and discomfort. Is also complaining of palpitations and decreased urinary output despite persistent oral intake. He has not had any chest pain or shortness of breath. MD Complaint: extremity swelling and joint pain (Right hip) Onset (ago): day(s) Pain Consistency: intermittent Quality: aching Radiation: distal Relieving factors: elevation and rest Exacerbating factors: weight bearing, walking and palpation Associated symptoms: Reports arthralgias and myalgias; Deny chest pain, fever(s), rash or short of breath Context: recent surgery/procedure (Right hip surgery) Review of Systems Const: Denies: fever(s) ENMT: Denies: throat pain, ear or mastoid pain, nasal discharge or nasal congestion Card: Denies: chest pain Resp: Denies: dyspnea, productive cough or non-productive cough GI: Denies: abdominal pain, nausea, vomiting, hematemesis, coffee ground emesis, diarrhea, constipation, bloating, hematochezia or melena : Denies: flank pain, dysuria, urinary frequency or urinary urgency Skin/Breast: Denies: rash PFSH ED PFSH: Medical History BPH (benign prostatic hyperplasia) GERD without esophagitis Gout Nocturia Peripheral polyneuropathy Surgical History Hx of cervical discectomy Status post right hip replacement Social History Smoking and tobacco status: current every day smoker cigarettes Packs smoked per day: 1 Alcohol intake: former Adopted: No Caregiver/support person: No Marital status: Single Current occupation: staying with brother who has two steps with one handrail Physical Exam Const: COMMON NORMALS: no acute distress GENERAL APPEARANCE: cooperative and comfortable ORIENTATION/CONSCIOUSNESS: Yes awake, Yes oriented to person, Yes oriented to place and Yes oriented to time HENMT: COMMON NORMALS: normocephalic, atraumatic and hearing grossly normal bilaterally HEAD & SCALP: normocephalic and atraumatic Neck/C-Spine: COMMON NORMALS: no JVD Resp: COMMON NORMALS: normal respiratory effort, No retractions, No use of accessory muscles and clear to auscultation bilaterally AUSCULTATION: clear to auscultation bilaterally Cardio: COMMON NORMALS: no JVD, regular rate, regular rhythm and No murmurs present (Cardio) RATE: regular rate RHYTHM: regular rhythm GI: COMMON NORMALS: Soft to palpation and No hepatosplenomegaly present AUSCULTATION: Yes normoactive bowel sounds PALPATION: Yes Soft to palpation, No Tenderness to palpation present (GI), No Guarding due to palpation present (GI) and Yes No hepatosplenomegaly present Extremity: NARRATIVE EXTREMITY EXAM: Mild edema of the right lower extremity nonpitting. Mild calf pain no distal thigh pain. Palpable pulses. Neuro: SENSORIUM/ORIENTATION: Yes oriented to person, Yes oriented to place and Yes oriented to time Skin: COMMON NORMALS: no rashes or lesions noted GENERAL SKIN EXAM: no rashes or lesions noted Course Vital Signs: Vital signs: Vital Signs Temperature 98.5 F 05/03/21 14:21 Pulse Rate 98 05/03/21 17:32 Respiratory Rate 22 H 05/03/21 17:32 Blood Pressure 132/79 05/03/21 17:32 Pulse Oximetry 94 05/03/21 17:32 MDM - Extremity (Nontraumatic) Medical Decision Making Venous duplex lower extremity negative. Discharge home elevate leg follow-up with Ortho return if has further problems. Medical Records I reviewed the patient's medical records. Lab Data I reviewed the patient's lab results. : 05/03/21 14:35 05/03/21 14:35 Radiology Impressions Chest X-Ray 05/03/21 14:36 IMPRESSION: 1. Negative chest. Laboratory Results WBC 14.5 10^3/uL (4.0-10.0) H 05/03/21 14:35 RBC 3.98 10^6/uL (4.1-5.3) L 05/03/21 14:35 Hgb 12.7 g/dL (11.7-16.6) 05/03/21 14:35 Hct 38.5 % (42.0-52.0) L 05/03/21 14:35 MCV 96.7 fl (80-94) H 05/03/21 14:35 MCH 31.9 pg (28.0-34.0) 05/03/21 14:35 MCHC 33.0 g/dL (30.0-36.0) 05/03/21 14:35 RDW 13.9 % (12.1-15.1) 05/03/21 14:35 Plt Count 516 10^3/cmm (130-400) H 05/03/21 14:35 MPV 9.3 fL (7.4-10.4) 05/03/21 14:35 Neut % (Auto) 66.6 % 05/03/21 14:35 Lymph % (Auto) 19.3 % 05/03/21 14:35 [place] % (Auto) 7.2 % 05/03/21 14:35 Eos % (Auto) 4.6 % 05/03/21 14:35 Baso % (Auto) 0.6 % 05/03/21 14:35 Neut # (Auto) 9.66 10^3/uL (1.8-7.7) H 05/03/21 14:35 Lymph # (Auto) 2.8 10^3/uL (0.8-4.8) 05/03/21 14:35 [place] # (Auto) 1.1 10^3/uL (0.2-0.9) H 05/03/21 14:35 Eos # (Auto) 0.7 10^3/uL (0.0-0.8) 05/03/21 14:35 Baso # (Auto) 0.1 10^3/uL (0.0-0.1) 05/03/21 14:35 Nucleated RBC % (auto) 0 % 05/03/21 14:35 Nucleated RBCs # 0.0 /100WBC 05/03/21 14:35 Sodium 142 mmol/L (136-145) 05/03/21 14:35 Potassium 3.7 mmol/L (3.5-5.1) 05/03/21 14:35 Chloride 104 mmol/L (98-107) 05/03/21 14:35 Carbon Dioxide 27 mmol/L (22-29) 05/03/21 14:35 Anion Gap 14.7 (5-19) 05/03/21 14:35 BUN 12 mg/dL (6-20) 05/03/21 14:35 Creatinine 0.5 mg/dL (0.7-1.2) L 05/03/21 14:35 GFR Calculation 170.8 mL/min (90-130) H 05/03/21 14:35 Glucose 142 mg/dL (65-115) H 05/03/21 14:35 Calculated Osmolality 296 mOsm/kg (285-295) H 05/03/21 14:35 Calcium 8.6 mg/dL (8.5-10.5) 05/03/21 14:35 Total Bilirubin 0.3 mg/dL (0.15-1.2) 05/03/21 14:35 AST 23 U/L (0-40) 05/03/21 14:35 ALT 18 U/L (0-41) 05/03/21 14:35 Alkaline Phosphatase 109 IU/L (40-130) 05/03/21 14:35 Total Protein 7.3 g/dL (6.6-8.7) 05/03/21 14:35 Albumin 3.7 g/dL (3.5-5.2) 05/03/21 14:35 Globulin 3.6 g/dL (1.3-4.6) 05/03/21 14:35 Urine Color Yellow (Yellow) 05/03/21 16:11 Urine Appearance Clear (CLEAR) 05/03/21 16:11 Urine pH 7 (5-7) 05/03/21 16:11 Ur Specific [place] 1.005 (1.005-1.030) 05/03/21 16:11 Urine Protein Neg (Negative) 05/03/21 16:11 Urine Glucose (UA) Norm (Normal) 05/03/21 16:11 Urine Ketones Negative (Negative) 05/03/21 16:11 Urine Blood 2+ (Negative) H 05/03/21 16:11 Urine Nitrate Negative (Negative) 05/03/21 16:11 Urine Bilirubin Neg (Negative) 05/03/21 16:11 Urine Urobilinogen Norm mg/dL (Negative) 05/03/21 16:11 Ur Leukocyte Esterase Negative (Negative) 05/03/21 16:11 Urine RBC 5-10 /hpf (0-2) H 05/03/21 16:11 Urine WBC None /hpf (0-5) 05/03/21 16:11 Ur Squamous Epith Cells 0-4 /hpf (0-5) H 05/03/21 16:11 Amorphous Sediment Not Reportable 05/03/21 16:11 Urine Bacteria Trace /hpf (NONE) 05/03/21 16:11 Discharge Plan Discharge Patient Disposition: Home Clinical Impression: Leg edema, right Condition: Stable Prescriptions: No Action gabapentin 800 mg tablet 800 mg PO TID 0RF duloxetine 60 mg Capsule,Delayed Release(Dr/Ec) 60 mg PO 0900,2100 Qty: 60 0RF omeprazole 20 mg Tablet,Delayed Release (Dr/Ec) 20 mg PO DAILY 0RF acetaminophen 500 mg Tablet 1,000 mg PO Q8H 14 Days Qty: 84 0RF aspirin 325 mg Tablet,Delayed Release (Dr/Ec) 325 mg PO DAILY 30 Days Qty: 30 0RF celecoxib 200 mg Capsule 200 mg PO Q12H 14 Days Qty: 28 0RF Discharge Orders: Discharge ED (Routine); Ordered 05/03/21 Ordered By: Donavan Law Referrals: Rosalia Rendon DO [Primary Care Provider] - Patient Instructions: Opioid Safety Activity Restrictions/Additional Instructions: Follow-up with your orthopedic surgeon as previously planned. Elevate leg whenever possible. Coding Level of Care Code ED Derrick Follower for Palak Schwartz
[2021-05-03 14:40] VITALS: BP 139/91; PULSE 94; RESP 15; O2SAT 95
[2021-05-03 14:48] LABS: Basophils # 0.1 10^3/uL (0.0-0.1); Basophils % 0.6 %; Eosinophils # 0.7 10^3/uL (0.0-0.8); Eosinophils % 4.6 %; Hematocrit 38.5 % (42.0-52.0); Hemoglobin 12.7 g/dL (11.7-16.6); Lymphocytes # 2.8 10^3/uL (0.8-4.8); Lymphocytes % 19.3 %; Mean Corpuscular Hemoglobin 31.9 pg (28.0-34.0); Mean Corpuscular Volume 96.7 fl (80-94); Mean Platelet Volume 9.3 fL (7.4-10.4); Monocytes # 1.1 10^3/uL (0.2-0.9); Monocytes % 7.2 %; Neutrophils # 9.66 10^3/uL (1.8-7.7); Neutrophils % 66.6 %; Nucleated Red Blood Cells % 0 %; Platelet Count 516 10^3/cmm (130-400); Red Blood Count 3.98 10^6/uL (4.1-5.3); Red Cell Distribution Width 13.9 % (12.1-15.1); White Blood Count 14.5 10^3/uL (4.0-10.0)
[2021-05-03 15:15] LABS: Alanine Aminotransferase 18 U/L (0-41); Albumin Level 3.7 g/dL (3.5-5.2); Alkaline Phosphatase 109 IU/L (40-130); Anion Gap 14.7 (5-19); Aspartate Amino Transferase 23 U/L (0-40); Blood Urea Nitrogen 12 mg/dL (6-20); Calcium 8.6 mg/dL (8.5-10.5); Carbon Dioxide 27 mmol/L (22-29); Chloride 104 mmol/L (98-107); Globulin 3.6 g/dL (1.3-4.6); Glomerular Filtration Rate 170.8 mL/min (90-130); Glucose 142 mg/dL (65-115); Osmolality Calculated 296 mOsm/kg (285-295); Potassium 3.7 mmol/L (3.5-5.1); Sodium 142 mmol/L (136-145); Total Bilirubin 0.3 mg/dL (0.15-1.2); Total Protein 7.3 g/dL (6.6-8.7)
[2021-05-03 16:13] VITALS: BP 131/95; PULSE 91; RESP 21; O2SAT 96
[2021-05-03 16:34] LABS: Urine Appearance Clear (CLEAR); Urine Color Yellow (Yellow)
[2021-05-03 16:35] LABS: Add Urine Microscopic? YES; Bilirubin Urine Neg (Negative); Blood Urine 2+ (Negative); Glucose Urine UA Norm (Normal); Ketones Urine Negative (Negative); Leukocyte Esterase Urine Negative (Negative); Nitrate Urine Negative (Negative); Protein Urine Neg (Negative); Specific Gravity, Urine 1.005 (1.005-1.030); Urobilinogen Urine Norm (Negative); pH Urine 7 (5-7)
[2021-05-03 16:44] LABS: Add Urine Culture? No; Bacteria Urine TRACE /hpf; Squamous Epithelial Cell Urine 0-4 /hpf (0-5)
[2021-05-03 17:32] VITALS: BP 132/79; PULSE 98; RESP 22; O2SAT 94
== END 2021-05-03 17:36 | disposition home or self-care (01) ==
PROVIDERS: Emergency Provider Family Medicine; PCP Family Medicine
DX: R60.0 Localized edema (principal); Z79.82 Long term (current) use of aspirin; F17.210 Nicotine dependence, cigarettes, uncomplicated; Z96.641 Presence of right artificial hip joint
CPT/HCPCS: 71045; 80053; 81001; 85025; 93970; 99283

== ENCOUNTER → 2021-05-25 14:37 | Outpatient (BNVA) | payer MEDICARE, BC, SELFPAY | PROVIDERS: PCP Family Medicine; Visit Provider Orthopaedic Surgery | DX: M87.051 Idiopathic aseptic necrosis of right femur (principal); Z96.641 Presence of right artificial hip joint | CPT/HCPCS: 73502 ==

== ENCOUNTER 2021-12-02 12:04 | Emergency (ER) | payer MEDICARE, BC, SELFPAY ==
[2021-12-02 12:10] VITALS: BP 110/72; PULSE 120; RESP 18; TEMP 37.2; O2SAT 99; BMI 22.2
--- NOTE | 2021-12-02 12:25 | XR_ITS ---
WS: [id number] Left wrist, 3 views, 12/02/2021 Clinical Data: pain after fall Comparison: None. Findings: No fractures or dislocations are seen. The carpal bones are intact. There is no soft tissue swelling. The distal radius and ulna are not remarkable. XR/XR wrist LT min 3V* [id number] Impression: Negative left wrist.
--- NOTE | 2021-12-02 12:26 | W.ED.FALL ---
HPI - Fall General: Chief Complaint: Fall Stated Complaint: fall Time Seen by Provider: 12/02/21 12:25 Source: patient Mode of arrival: wheelchair Limitations: no limitations History of Present Illness: 61-year-old male presents to the ER today for left wrist pain and right knee pain after a fall yesterday. Patient reports he bent over to pickle pumper something next to his bed and caught his foot on the edge of something else and when he turned he fell. Patient reports he landed on the right knee and left wrist. Patient reports since then he has had continued pain and decreased range of motion of the left wrist. Patient reports some swelling also. Patient reports swelling of the right knee which she also admits he has had reconstruction on. Patient reports painful weightbearing. He reports the most pain is with planting and twisting. He has been taking ibuprofen at home with some improvement. Review of Systems General: Reports: 10 or more systems reviewed and unremarkable except in HPI and below PFSH ED PFSH: Medical History BPH (benign prostatic hyperplasia) GERD without esophagitis Gout Nocturia Peripheral polyneuropathy Surgical History Hx of cervical discectomy Status post right hip replacement Social History Smoking and tobacco status: current every day smoker cigarettes Packs smoked per day: 1 Alcohol intake: former Adopted: No Caregiver/support person: No Marital status: Single Current occupation: staying with brother who has two steps with one handrail Physical Exam Const: COMMON NORMALS: no acute distress, average body habitus, patient oriented x3, no limitations, healthy appearing, alert and well nourished HENMT: COMMON NORMALS: normocephalic, atraumatic and moist oral mucous membranes HEAD & SCALP: normocephalic and atraumatic Neck/C-Spine: COMMON NORMALS: full ROM Resp: COMMON NORMALS: normal respiratory effort EFFORT & INSPECTION: Yes able to speak in complete sentences Cardio: COMMON NORMALS: regular rate and regular rhythm RATE: regular rate RHYTHM: regular rhythm Back/Pelvis: COMMON NORMALS: no thoracic nor lumbar tenderness and thoraco-lumbar ROM normal Extremity: NARRATIVE EXTREMITY EXAM: Patient has mild tenderness to palpation over the distal left radius. There is mild swelling also noted there and pain with range of motion. Patient has some decreased range of motion secondary to the pain. Patient also is noted to have some mild swelling of the right knee. He has normal range of motion however pain with weightbearing. Patient is nontender palpation of the right knee. Neuro: COMMON NORMALS: patient oriented x3 SENSORIUM/ORIENTATION: Yes alert Psych: COMMON NORMALS: mental status grossly normal, Normal thought process present and cooperative THOUGHT PROCESS: Normal thought process present Skin: COMMON NORMALS: no rashes or lesions noted and no wounds GENERAL SKIN EXAM: no rashes or lesions noted Course ED course: 61-year-old male presents to the ER today for left wrist pain and right knee pain after a fall yesterday. Patient reports he bent over to pickle pumper something next to his bed and caught his foot on the edge of something else and when he turned he fell. Patient reports he landed on the right knee and left wrist. Patient reports since then he has had continued pain and decreased range of motion of the left wrist. Patient reports some swelling also. Patient reports swelling of the right knee which she also admits he has had reconstruction on. Patient reports painful weightbearing. He reports the most pain is with planting and twisting. He has been taking ibuprofen at home with some improvement. We will get an x-ray of the right knee and left wrist at this time. Vital Signs: Vital signs: Vital Signs Temperature 99.0 F 12/02/21 12:10 Pulse Rate 120 H 12/02/21 12:10 Respiratory Rate 18 12/02/21 12:10 Blood Pressure 110/72 12/02/21 12:10 Pulse Oximetry 99 12/02/21 12:10 Oxygen Delivery Me thod 12/02/21 12:10 MDM - Fall Medical Decision Making Patient presents for a fall injury that occurred yesterday. Patient has left wrist and right knee pain. We x-rayed both the left wrist and right knee and both were normal. There is some arthritis noted in the left wrist but no acute fracture. Right knee is unremarkable. I discussed findings with patient. We will place him in a Velcro wrist brace. Recommended applying ice, 20 minutes on and 20 minutes off to both the knee and the wrist. Take ibuprofen [id number] for pain. Give this 10 to 14 days if no improvement follow-up with PCP. Return to the ER with any new or worsening symptoms. Patient verbalized understanding and is in agreement with the treatment plan. Lab Data Radiology Impressions Wrist X-Ray 12/02/21 12:25 Impression: Negative left wrist. Knee X-Ray 12/02/21 12:44 Impression: 1. Negative for fracture. 2. Minimal chondral cartilage calcification medially and laterally. Critical Care Time Critical Care Time: Critical Care Time: No Discharge Plan Discharge Patient Disposition: Home Clinical Impression: Left wrist sprain Qualifiers: Encounter type: initial encounter Qualified Code(s): S63.502A - Unspecified sprain of left wrist, initial encounter Contusion of knee, right Qualifiers: Encounter type: initial encounter Qualified Code(s): S80.01XA - Contusion of right knee, initial encounter Condition: Stable Prescriptions: No Action gabapentin 800 mg tablet 800 mg PO TID duloxetine 60 mg Capsule,Delayed Release(Dr/Ec) 60 mg PO 0900,2100 Qty: 60 0RF omeprazole 20 mg Tablet,Delayed Release (Dr/Ec) 20 mg PO DAILY Discharge Orders: Discharge ED (Routine); Ordered 12/02/21 Ordered By: Cristina Castellon Referrals: Rosalia Rendon DO [Primary Care Provider] - Discharge Diet: Usual diet Discharge Activity: Increase activity as tolerated Patient Instructions: Opioid Safety, Pain Management Activity Restrictions/Additional Instructions: Wear Velcro wrist brace x1 week. Take ibuprofen for pain. Elevate right knee and apply ice to reduce swelling. Follow-up with PCP in 10 to 14 days if no improvement. Return to the ER with any new or worsening symptoms. Coding Level of Care Code ED Liquor Gallery Operator for Palak Schwartz
--- NOTE | 2021-12-02 12:44 | XR_ITS ---
WS: [id number] Right knee, 3 views, 12/02/2021 Clinical Data: pain after fall Comparison: None. Findings: No fractures or dislocations are seen. The joint spaces are normal. The patella is intact. The soft t issues are unremarkable. There is minimal chondral cartilage calcification in both the medial and lateral cartilage. XR/XR knee RT 3V* [id number] Impression: 1. Negative for fracture. 2. Minimal chondral cartilage calcification medially and laterally.
[2021-12-02 13:10] VITALS: BP 110/72; PULSE 100; RESP 18; TEMP 37.2; O2SAT 99
== END 2021-12-02 13:21 | disposition home or self-care (01) ==
PROVIDERS: Emergency Provider Physician Assistant; PCP Family Medicine
DX: S63.502A Unspecified sprain of left wrist, initial encounter (principal); S80.01XA Contusion of right knee, initial encounter; W19.XXXA Unspecified fall, initial encounter
CPT/HCPCS: 73110; 73562; 99283

== ENCOUNTER → 2021-12-12 13:00 | Outpatient (BNVA) | payer MEDICARE, BC, SELFPAY | PROVIDERS: PCP Family Medicine; Visit Provider Surgery | DX: L72.0 Epidermal cyst (principal) | CPT/HCPCS: 99203 ==

== ENCOUNTER 2022-01-26 13:30 | Outpatient (CLI) | payer MEDICARE, BC, SELFPAY ==
--- NOTE | 2022-01-26 13:40 | XR_ITS ---
WS: [email or web address] Exam: XR wrist LT min 3V* [id number] Date/Time of Exam: 01/26/2022 1:59 PM Reason For Exam: INJURY OF R WRIST comparison 12/02/2021. No fracture or dislocation. There is increased bony sclerosis of the proximal scaphoid when compared to the last exam. Moderate DJD at the CMC joint of the thumb. Normal soft tissues. Recommendations: MRI of the wrist could be helpful for further workup if thought to be clinically war ranted. XR/XR wrist LT min 3V* [id number] IMPRESSION: 1. Increased bony sclerosis of the proximal scaphoid since the previous exam. T his might be seen in early stage osteonecrosis. 2. No fracture noted. Moderate DJD at the CMC joint of the thumb.
--- NOTE | 2022-01-26 13:58 | XR_ITS ---
WS: [email or web address] Exam: XR wrist RT min 3V* [id number] Date/Time of Exam: 01/26/2022 1:58 PM Reason For Exam: Right Wrist Pain Comparison 07/03/2016. There is bony sclerosis of the proximal right scaphoid with the mild subcortical cyst formation. No f racture or dislocation. The wrist joint is well maintained. Moderate DJD of the CMC joint of the thum b. Normal soft tissues. Recommendations: MRI of the wrist could be helpful for further workup if thought to be clinically war ranted. XR/XR wrist RT min 3V* [id number] IMPRESSION: 1. Increased bony sclerosis of the proximal scaphoid since previous exam. This could represent degenerative change however early stage osteonecrosis is not ex cluded. 2. No fracture or dislocation.
== END 2022-01-26 13:31 | disposition home or self-care (01) ==
LOC: RAD 13:34
PROVIDERS: PCP Family Medicine; Visit Provider Family Medicine
DX: S69.92XD Unspecified injury of left wrist, hand and finger(s), subsequent encounter (principal); X58.XXXD Exposure to other specified factors, subsequent encounter
CPT/HCPCS: 73110

== ENCOUNTER 2022-04-10 13:44 | Outpatient (CLI) | payer MEDICARE, BC, SELFPAY ==
--- NOTE | 2022-04-10 | US_ITS ---
WS: [id number] RENAL ULTRASOUND HISTORY: HEMATURIA COMPARISON: None available. TECHNIQUE: 2-D and color Doppler imaging of the kidney submitted. Right kidney: 10.2 cm x 5.7 cm x 4.9 cm. Normal echogenicity with no hydronephrosis or mass. Left kidney: 10.1 cm x 5.3 cm x 6.8 cm. Normal echogenicity with no hydronephrosis or mass. Aorta: Normal. Urinary Bladder: Normal distention. US/US renal BI* [id number] IMPRESSION: Normal renal ultrasound.
== END 2022-04-10 13:45 | disposition home or self-care (01) ==
LOC: RAD 13:48
PROVIDERS: PCP Family Medicine; Visit Provider Family Medicine
DX: R31.0 Gross hematuria (principal)
CPT/HCPCS: 76770

== ENCOUNTER 2022-09-06 17:32 | Outpatient (CLI) | payer MEDICARE, BC, SELFPAY ==
--- NOTE | 2022-09-06 17:42 | XR_ITS ---
WS: [email or web address] Exam: XR lumbar spine 2-3V* [id number] Date/Time of Exam: 09/06/2022 5:43 PM Reason For Exam: Right foot pain No acute fracture or dislocation. Degenerative disc change at all levels. Spondylosis at all levels. Facet arthropathy at all levels. Mild levoscoliosis. Posterior osteophytes at the L4-5 level that caesar ht cause some spinal canal stenosis. XR/XR lumbar spine 2-3V* [id number] IMPRESSION: 1. No fracture or dislocation. 2. Moderately advanced degenerative changes as detailed above. Mild levoscolios is.
--- NOTE | 2022-09-06 17:43 | XR_ITS ---
WS: [email or web address] Exam: XR foot RT min 3V* [id number] Date/Time of Exam: 09/06/2022 5:43 PM Reason For Exam: Right foot pain No acute fracture or dislocation. Mild DJD at the first MP joint. No soft tissue foreign bodies are s een. XR/XR foot RT min 3V* [id number] IMPRESSION: 1. Minimal degenerative change. No fracture or other significant finding.
--- NOTE | 2022-09-06 17:43 | XR_ITS ---
WS: [email or web address] Exam: XR foot LT min 3V* [id number] Date/Time of Exam: 09/06/2022 5:43 PM Reason For Exam: Lower back pain No acute fracture or dislocation. Degenerative changes in the IP joints and first MP joint. No soft t issue foreign bodies. Large plantar heel spur. XR/XR foot LT min 3V* [id number] IMPRESSION: 1. Degenerative changes. No fracture or other significant finding.
== END 2022-09-06 17:33 | disposition home or self-care (01) ==
PROVIDERS: PCP Family Medicine; Visit Provider Family Medicine
DX: M54.50 Low back pain, unspecified (principal); M19.072 Primary osteoarthritis, left ankle and foot; M19.071 Primary osteoarthritis, right ankle and foot
CPT/HCPCS: 72100; 73630

== ENCOUNTER → 2022-10-30 08:12 | Outpatient (BNVA) | payer MEDICARE, BC, SELFPAY | PROVIDERS: PCP Family Medicine; Visit Provider Podiatrist Foot & Ankle Surgery | DX: Z91.81 History of falling (principal); R26.81 Unsteadiness on feet; M20.32 Hallux varus (acquired), left foot; M20.42 Other hammer toe(s) (acquired), left foot | CPT/HCPCS: 99204 ==

== ENCOUNTER → 2022-12-25 07:40 | Outpatient (BNVA) | payer MEDICARE, BC, SELFPAY | PROVIDERS: PCP Family Medicine; Visit Provider Podiatrist Foot & Ankle Surgery | DX: R09.89 Other specified symptoms and signs involving the circulatory and respiratory systems; M20.42 Other hammer toe(s) (acquired), left foot; M20.32 Hallux varus (acquired), left foot; M21.372 Foot drop, left foot | CPT/HCPCS: 99213 ==

== ENCOUNTER 2023-01-12 09:38 | Outpatient (CLI) | payer MEDICARE, BC, SELFPAY ==
--- NOTE | 2023-01-12 10:00 | USCV_ITS ---
Eleazar Kota Age: 62 Gender: M : 1960 Exam Date: 01/12/2023 10:20 Ordering Phys: Mikel Helms DPM Technologist: Lori Romero [place] [facility] [place]: lower extremity pain and weakness, decreased pulses RIGHT LEFT Brachial 112.00 mmHg Brachial 110.00 mmHg Pressure (mmHg) Waveform Pressure (mmHg) Waveform 100.00 Above Knee 106.00 88.00 Below Knee 105.00 84.00 INFORMATICA MDM DEVELOPER 79.00 51.00 DPA 80.00 0.75 Ankle/Brachial Index 0.71 0.65 Pre-Exercise Toe/Brachial Index 0.57 FINDINGS Resting JUNO 0.75 on the right and 0.7 normal on the left Resting TBI of 0.65 on the right and 0.57 on the left PVR waveforms showing slight blunting of the dicrotic notch CONCLUSIONS Abnormal resting ABIs and TBIs and PVR waveforms bilaterally suggesting mild to moderate peripheral arterial disease Dr Darlin Diaz MD [facility] (Electronically Signed) Final Date: 15 January 2023 09:23 S
== END 2023-01-12 09:39 | disposition home or self-care (01) ==
LOC: RAD 09:39
PROVIDERS: PCP Family Medicine; Visit Provider Podiatrist Foot & Ankle Surgery
DX: R09.89 Other specified symptoms and signs involving the circulatory and respiratory systems (principal); I73.9 Peripheral vascular disease, unspecified
CPT/HCPCS: 93923

== ENCOUNTER 2023-02-06 09:17 | Outpatient (CLI) | payer MEDICARE, BC, SELFPAY ==
--- NOTE | 2023-02-06 09:23 | CT_ITS ---
WS: [email or web address] CT ANGIOGRAPHY OF THE ABDOMINAL AORTA WITH RUNOFF TO THE ANKLES HISTORY: PVD TECHNIQUE: Arterial injection is performed during imaging to evaluate the aorta and runoff vessels to the ankles. MIP and volume rendering imaging has also been performed. All images are reviewed. All C T scans at [facility] use at least one of these dose optimization techniques: automated exposu re control; mA and/or kV adjustment per patient size (includes targeted exams where dose is matched t o clinical indication); or iterative reconstruction. Contrast: Omnipaque 350; 100 mL IV. DLP: 1372.22 mGy.cm COMPARISON: No similar studies. Aorta: Moderate atherosclerotic plaque. There is mild diffuse intimal thickening and noncontiguous ca lcification in the wall. No aneurysm. Celiac axis and SMA are patent. No renal artery stenosis. SHERRI i s patent. RIGHT lower extremity arterial system: RIGHT common, internal and external iliac arteries are patent. Increased plaque in the internal iliac artery but no occlusion. Femoral artery, SFA and deep profund a are enhancing. Small caliber mid to distal SFA becomes occluded distally, proximal to the Pratik's canal. There are numerous collateral vessels. Reconstitution of the popliteal artery. Normal size pop liteal artery. Three-vessel runoff to the ankle is moderate. LEFT lower extremity arterial system: Common, internal and external iliac arteries are patent. Slight ly more plaque and intimal thickening on the LEFT as compared to the RIGHT. Focal ulcerated plaque pr oximal LEFT external iliac artery with mild stenosis. Stenosis less than 50%. Common femoral artery, bifurcation into the SFA and deep profunda is intact with good enhancement. Occluded distal SFA near Pratik's canal with numerous collaterals. Reconstitution near the popliteal fossa. Popliteal artery i s small caliber. Tibioperoneal trunk is patent. Occluded peroneal artery proximally. Very small calib er anterior tibial artery. The distal peroneal artery is attempting reconstitution. Best flow to the ankle is through the posterior tibial artery. Motion artifact at the lung bases. Normal size liver. Negative gallbladder. Negative spleen and pancr eas. No adrenal mass. Kidneys are enhancing normally. No adenopathy or GI tract obstruction. Mild dis jesus diverticular disease. Prior RIGHT hip arthroplasty. LEFT hip osteonecrosis. IMPRESSION: 1. Complete occlusion mid to distal RIGHT SFA just proximal to Pratik's canal. Reconstitution of the popliteal artery. 2. Three-vessel runoff to the ankle is moderate. 3. Occluded distal LEFT SFA near Pratik's canal. Attempted reconstitution through a small caliber pop liteal artery. 4. Very small caliber with proximal occlusion of the LEFT peroneal artery. Small caliber LEFT anterio r tibial artery. 5. Vessel runoff to the ankle on the LEFT is via the posterior tibial artery. 6. LEFT hip osteonecrosis
[2023-02-06 10:14] LABS: Blood Urea Nitrogen 8 mg/dL (8-23); Glomerular Filtration Rate 137.4 mL/min (90-130)
[2023-02-06] MEDS: iohexol 350 mg/mL 500 mL Btl (per mL) IV (10:31)
== END 2023-02-06 09:18 | disposition home or self-care (01) ==
LOC: RAD 09:18
PROVIDERS: Radiology Diagnostic Radiology; PCP Family Medicine; Visit Provider Family Medicine
DX: I70.203 Unspecified atherosclerosis of native arteries of extremities, bilateral legs (principal); I70.92 Chronic total occlusion of artery of the extremities; M87.9 Osteonecrosis, unspecified
CPT/HCPCS: 75635; 82565; 84520; Q9967

== ENCOUNTER 2023-02-20 07:48 | Outpatient (CLI) | payer MEDICARE, BC, SELFPAY ==
--- NOTE | 2023-02-20 07:52 | MR_ITS ---
WS: [email or web address] MRI LUMBAR SPINE NONCONTRAST HISTORY: CHRONIC LOW BACK PAIN COMPARISON: None available. TECHNIQUE: Sagittal and axial multisequence imaging is submitted. Most surgical fusion in the cervical spine. Multilevel facet disease and disc disease in the cervical and thoracic spines. Mild LEFT curvature lumbar spine. Disc spaces are narrowed and desiccated throughout the lumbar spine with fatty replacement of the mar row. There is osteophytosis at all levels and facet arthritis. Most significant disc space narrowing at L4-5. Conus terminates normally at L1-2 disc level. L1-L2: Diffuse annular disc bulging asymmetric to the LEFT. Mild bilateral foraminal stenosis. L2-L3: Diffuse annular disc bulging, osteophytic ridging with facet and ligamentum flavum hypertrophy . Mild central with moderate bilateral subarticular recess and foraminal stenosis. Slightly greater s tenosis RIGHT foramen. Suspect there is a RIGHT foraminal disc protrusion contributing to the stenosi s. L3-L4: Diffuse annular disc bulging with ligamentum flavum and facet arthritis. Mild central, bilater al subarticular recess and foraminal stenosis. Mild disc encroachment upon the traversing L4 nerve ro ots. L4-L5: Diffuse annular disc bulging, osteophytic ridging with moderate facet and ligamentum flavum hy pertrophy. Moderate bilateral foraminal stenosis. There is subarticular recess encroachment. L5-S1: Diffuse annular disc bulging with facet and ligamentum flavum hypertrophy. Disc encroaches and contacts the S1 nerve roots. Mild RIGHT and moderate LEFT foraminal stenosis. Paravertebral soft tissues are normal. IMPRESSION: 1. Moderate degenerative disc and facet arthritis throughout the lumbar spine. 2. L2-3: Mild central with moderate bilateral subarticular recess and foraminal stenosis. Greater nat nosis on the RIGHT. 3. L3-4: Mild central, bilateral subarticular recess and foraminal stenosis. 4. L4-5: Moderate bilateral foraminal stenosis and subarticular recess encroachment. 5. L5-S1: Mild RIGHT and moderate LEFT foraminal stenosis with mild disc encroachment upon the S1 ner ve roots bilaterally.
== END 2023-02-20 07:49 | disposition home or self-care (01) ==
LOC: RAD 07:49
PROVIDERS: PCP Family Medicine; Visit Provider Family Medicine
DX: M51.36 Other intervertebral disc degeneration, lumbar region (principal); M47.816 Spondylosis without myelopathy or radiculopathy, lumbar region; M48.07 Spinal stenosis, lumbosacral region
CPT/HCPCS: 72148

== ENCOUNTER → 2023-02-26 13:53 | Outpatient (BNVA) | payer MEDICARE, BC, SELFPAY | PROVIDERS: PCP Family Medicine; Visit Provider Podiatrist Foot & Ankle Surgery | DX: M20.42 Other hammer toe(s) (acquired), left foot (principal); M20.32 Hallux varus (acquired), left foot; R09.89 Other specified symptoms and signs involving the circulatory and respiratory systems; M21.372 Foot drop, left foot | CPT/HCPCS: 99213 ==

== ENCOUNTER 2023-06-16 14:24 | Emergency (ER) | payer MEDICARE, BC, SELFPAY ==
[2023-06-16 14:27] VITALS: BP 112/74; PULSE 97; RESP 16; TEMP 36.9; O2SAT 98; BMI 16.7
[2023-06-16 14:56] LABS: Basophils # 0.1 10^3/uL (0.0-0.1); Basophils % 0.7 %; Eosinophils # 0.2 10^3/uL (0.0-0.8); Eosinophils % 2.3 %; Hematocrit 44.3 % (37-53); Lymphocytes # 1.7 10^3/uL (0.8-4.8); Mean Corpuscular HGB Conc 33.9 g/dL (30-55); Mean Corpuscular Hemoglobin 31.5 pg (27-33); Mean Corpuscular Volume 93.1 fl (82-101); Mean Platelet Volume 9.7 fL (7.4-10.4); Monocytes # 0.6 10^3/uL (0.2-0.9); Neutrophils % 70.7 %; Nucleated Red Blood Cells % 0 %; Platelet Count 275 10^3/cmm (157-399); Red Blood Count 4.76 10^6/uL (3.85-5.65); Red Cell Distribution Width 13.2 % (12.1-15.1); White Blood Count 9.05 10^3/uL (3.29-11.43)
[2023-06-16] MEDS: sodium chloride 0.9% 1,000 ML 999 ML IV (15:07)
[2023-06-16] MEDS: ketorolac 30 mg/mL INJ IVP (15:11)
[2023-06-16] MEDS: diphenhydrAMINE 50 mg/mL SDV 1mL IVP (15:12)
[2023-06-16 15:14] LABS: Alanine Aminotransferase 10 U/L (0-41); Albumin Level 4.3 g/dL (3.5-5.2); Alkaline Phosphatase 131 U/L (40-130); Anion Gap 15.5 (5-19); Aspartate Amino Transferase 12 U/L (0-40); Blood Urea Nitrogen 5 mg/dL (8-23); Calcium 9.3 mg/dL (8.5-10.5); Carbon Dioxide 29 mmol/L (22-29); Chloride 101 mmol/L (98-107); Creatinine Clr Calc Pharmacy 92.3981; Globulin 3.1 g/dL (1.3-4.6); Glomerular Filtration Rate 137.4 mL/min (90-130); Glucose 121 mg/dL (65-115); Osmolality Calculated 293 mOsm/kg (285-295); Potassium 3.5 mmol/L (3.5-5.1); Sodium 142 mmol/L (136-145); Total Bilirubin 0.4 mg/dL (0.15-1.2); Total Protein 7.4 g/dL (6.6-8.7)
--- NOTE | 2023-06-16 15:58 | ED_ITS ---
HPI - Headache 2 General: Chief Complaint: Headache Stated Complaint: ringing in ears, headache, n/v Time Seen by Provider: 06/16/23 14:41 Source: patient Mode of arrival: ambulatory History of Present Illness: 68-year-old male presents emergency room with complaint of headache tinnitus this has been going on evidently for years. He states he does not feel like he is able to eat and is lost some weight. He has had a little bit of cough and shortness of breath he is a former smoker now he just smokes marijuana he says this actually is only thing that helps him. He is nauseous frequently and occasionally has some vomiting he has not had any diarrhea. No hematochezia melena hematemesis or coffee-ground emesis MD elicited complaint: headache Onset (ago): minute(s) Onset description: suddenly Exacerbating factors: none Relieving factors: nothing Associated symptoms: Reports nausea and vomiting; Deny chest pain, confusion, cough, diaphoresis, eye pain, eye redness, fever(s), lightheadedness, loss of vision, malaise, neck stiffness, numbness, paresthesias, photophobia, pre-syncope, rash, seizures, short of breath, sound sensitivity, syncope or weakness Treatments prior to arrival: none Review of Systems 2 Const: Denies: fever(s), chills, malaise or diaphoresis ENMT: Reports: tinnitus Card: Denies: chest pain, lightheadedness, syncope or pre-syncope Resp: Reports: dyspnea and non-productive cough GI: Reports: nausea and vomiting; Denies: abdominal pain : Denies: dysuria, urinary frequency or urinary urgency Musc: Denies: neck pain or back pain Skin/Breast: Denies: rash Neuro: Reports: headache(s); Denies: confusion PFSH ED 2 PFSH: Medical History Cannabis use disorder, mild, abuse Psychiatric care Nocturia BPH (benign prostatic hyperplasia) Gout GERD without esophagitis Peripheral polyneuropathy Surgical History Hx of cervical discectomy Status post right hip replacement Social History Smoking and tobacco/nicotine status: current every day tobacco/nicotine user cigarettes Packs smoked per day: 1 Alcohol intake: former Substance/Drug Use: former Adopted: No Caregiver/support person: No Marital status: Single Current occupation: staying with brother who has two steps with one handrail Physical Exam 2 Const: COMMON NORMALS: no acute distress GENERAL APPEARANCE: cooperative and comfortable ORIENTATION/CONSCIOUSNESS: Yes awake, Yes oriented to person, Yes oriented to place and Yes oriented to time HENMT: COMMON NORMALS: normocephalic, atraumatic and hearing grossly normal bilaterally HEAD & SCALP: normocephalic and atraumatic Eye: DIRECT OPHTHALMOSCOPY: No photophobia Resp: COMMON NORMALS: normal respiratory effort, No retractions, No use of accessory muscles and clear to auscultation bilaterally AUSCULTATION: clear to auscultation bilaterally Cardio: COMMON NORMALS: regular rate, regular rhythm and No murmurs present (Cardio) RATE: regular rate RHYTHM: regular rhythm GI: COMMON NORMALS: Soft to palpation and No hepatosplenomegaly present A USCULTATION: Yes normoactive bowel sounds PALPATION: Yes Soft to palpation, No Tenderness to palpation present (GI), No Guarding due to palpation present (GI) and Yes No hepatosplenomegaly present Extremity: COMMON NORMALS: normal to inspection, capillary refill normal, no clubbing, cyanosis or edema, no calf tenderness and no pedal edema Neuro: SENSORIUM/ORIENTATION: Yes oriented to person, Yes oriented to place and Yes oriented to time Skin: COMMON NORMALS: no rashes or lesions noted GENERAL SKIN EXAM: no rashes or lesions noted Course 2 Vital Signs: Vital signs: Vital Signs Temperature 98.4 F 06/16/23 14:27 Pulse Rate 97 06/16/23 14:27 Respiratory Rate 16 06/16/23 14:27 Blood Pressure 112/74 06/16/23 14:27 Pulse Oximetry 98 06/16/23 14:27 Oxygen Delivery Me thod Room Air 06/16/23 14:27 MDM - Headache Medical Decision Making No acute findings on the labs CT head or chest x-ray. He has no focal neurologic deficits. He is a former drinker he assures me he has not been drinking recently recently did begin using a marijuana regularly. Discussed with him that this may contribute to some of his symptoms. No acute findings and no emergent findings are found at this time I would recommend though that he follow-up with a primary care doctor or internal medicine for further evaluation. Medical Records I reviewed the patient's medical records. Lab Data I reviewed the patient's lab results. 06/16/23 14:48 06/16/23 14:48 Radiology Impressions Chest X-Ray 06/16/23 16:13 IMPRESSION: No acute findings. Head CT 06/16/23 16:13 IMPRESSION: No acute intracranial abnormality. Laboratory Results WBC 9.05 10^3/uL (3.29-11.43) 06/16/23 14:48 RBC 4.76 10^6/uL (3.85-5.65) 06/16/23 14:48 Hgb 15.00 g/dL (11.27-16.99) 06/16/23 14:48 Hct 44.3 % (37-53) 06/16/23 14:48 MCV 93.1 fl (82-101) 06/16/23 14:48 MCH 31.5 pg (27-33) 06/16/23 14:48 MCHC 33.9 g/dL (30-55) 06/16/23 14:48 RDW 13.2 % (12.1-15.1) 06/16/23 14:48 Plt Count 275 10^3/cmm (157-399) 06/16/23 14:48 MPV 9.7 fL (7.4-10.4) 06/16/23 14:48 Neut % (Auto) 70.7 % 06/16/23 14:48 Lymph % (Auto) 19.0 % 06/16/23 14:48 [place] % (Auto) 7.0 % 06/16/23 14:48 Eos % (Auto) 2.3 % 06/16/23 14:48 Baso % (Auto) 0.7 % 06/16/23 14:48 Neut # (Auto) 6.40 10^3/uL (1.8-7.7) 06/16/23 14:48 Lymph # (Auto) 1.7 10^3/uL (0.8-4.8) 06/16/23 14:48 [place] # (Auto) 0.6 10^3/uL (0.2-0.9) 06/16/23 14:48 Eos # (Auto) 0.2 10^3/uL (0.0-0.8) 06/16/23 14:48 Baso # (Auto) 0.1 10^3/uL (0.0-0.1) 06/16/23 14:48 Nucleated RBC % (auto) 0 % 06/16/23 14:48 Nucleated RBCs # 0.0 /100WBC 06/16/23 14:48 Sodium 142 mmol/L (136-145) 06/16/23 14:48 Potassium 3.5 mmol/L (3.5-5.1) 06/16/23 14:48 Chloride 101 mmol/L (98-107) 06/16/23 14:48 Carbon Dioxide 29 mmol/L (22-29) 06/16/23 14:48 Anion Gap 15.5 (5-19) 06/16/23 14:48 BUN 5 mg/dL (8-23) L 06/16/23 14:48 Creatinine 0.6 mg/dL (0.7-1.2) L 06/16/23 14:48 GFR Calculation 137.4 mL/min (90-130) H 06/16/23 14:48 Glucose 121 mg/dL (65-115) H 06/16/23 14:48 Calculated Osmolality 293 mOsm/kg (285-295) 06/16/23 14:48 Calcium 9.3 mg/dL (8.5-10.5) 06/16/23 14:48 Total Bilirubin 0.4 mg/dL (0.15-1.2) 06/16/23 14:48 AST 12 U/L (0-40) 06/16/23 14:48 ALT 10 U/L (0-41) 06/16/23 14:48 Alkaline Phosphatase 131 U/L (40-130) H 06/16/23 14:48 Total Protein 7.4 g/dL (6.6-8.7) 06/16/23 14:48 Albumin 4.3 g/dL (3.5-5.2) 06/16/23 14:48 Globulin 3.1 g/dL (1.3-4.6) 06/16/23 14:48 All radiology interpretation(s) finalized by discharge Discharge Plan Discharge Patient Disposition: Home Clinical Impression: Headache, Tinnitus Condition: Stable Prescriptions: No Action oxycodone 20 mg tablet 20 mg PO Q6H (DME) MORE balance brace to left See Rx Instructions .Route .MEDSUPPLY Qty: 1 0RF Rx Instructions: As directed by [facility] cyclobenzaprine 10 mg tablet 10 mg PO TID PRN (Reason: Pain) clopidogrel 75 mg tablet 75 mg PO DAILY sertraline 100 mg tablet 200 mg PO DAILY Discharge Orders: Discharge ED (Routine); Ordered 06/16/23 Ordered By: Donavan Law Referrals: Rosalia Rendon, [Primary Care Provider] - Discharge Diet: Usual diet Discharge Activity: Increase activity as tolerated Patient Instructions: Opioid Safety, Pain Management Activity Restrictions/Additional Instructions: Thank you for choosing [facility] for your healthcare needs today. Please realize this is an emergency room and that we are providing you with a medical screening exam and this may not be complete and all inclusive of all the testing and or work up that you may need to determine your ailment or severity of your illness. It is very important that you follow up as instructed or that you return to the Emergency Department should you have concerns or if your condition changes or worsens in any way. You are seen today for complaints of headache with tinnitus (ringing in ears) nausea and vomiting unexplained weight loss. Your laboratory test did not show any emergent conditions CT of the head and chest x-ray were normal. Will discharge you home recommend you follow-up with your primary care doctor for further evaluation for your symptoms. 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
--- NOTE | 2023-06-16 16:13 | XRR_ITS ---
PROCEDURE INFORMATION: Exam: XR Chest Exam date and time: 06/16/2023 4:16 PM Age: 62 years old Clinical indication: Cough and dyspnea; Smoker's cough; Patient HX: Dyspnea; Cough; Ears ringing TECHNIQUE: Imaging protocol: Radiologic exam of the chest. Views: 1 view. COMPARISON: CR XR chest 1V portable [id number] 05/03/2021 2:49 PM FINDINGS: Lungs: Unremarkable. No consolidation or mass. Pleural spaces: Unremarkable. No pleural effusion. No pneumothorax. Heart/Mediastinum: Unremarkable. No cardiomegaly. Bones/joints: Unremarkable. XR/XR chest 1V portable [id number] IMPRESSION: No acute findings.
--- NOTE | 2023-06-16 16:13 | CTR_ITS ---
PROCEDURE INFORMATION: Exam: CT Head Without Contrast Exam date and time: 06/16/2023 4:26 PM Age: 62 years old Clinical indication: Pain; Headache; Additional info: Headache tinnitus TECHNIQUE: Imaging protocol: Computed tomography of the head without contrast. Radiation optimization: All CT scans at this facility use at least one of these dose optimization techniques: automated exposure control; mA and/or kV adjustment per patient size (includes targeted exams where dose is matched to clinical indication); or iterative reconstruction. COMPARISON: CT cervical spin wo con* [id number] 07/18/2016 11:51 AM RADIATION DOSE METRICS: Total DLP (mGy-cm): 1047.78 FINDINGS: Brain: Normal. No hemorrhage. Unremarkable white matter. No mass effect or acute infarct. Cerebral ventricles: No ventriculomegaly. No midline shift. Paranasal sinuses: Visualized sinuses are unremarkable. No fluid levels. Mastoid air cells: Visualized mastoid air cells are well aerated. Bones/joints: Unremarkable. No acute fracture. Soft tissues: Unremarkable. CT/CT head wo con* [id number] IMPRESSION: No acute intracranial abnormality.
[2023-06-16 17:22] VITALS: BP 115/76; PULSE 89; RESP 16; TEMP 36.9; O2SAT 99
== END 2023-06-16 17:23 | disposition home or self-care (01) ==
PROVIDERS: Emergency Provider Family Medicine; PCP Family Medicine
DX: R51.9 Headache, unspecified (principal); H93.19 Tinnitus, unspecified ear; Z79.02 Long term (current) use of antithrombotics/antiplatelets; F17.210 Nicotine dependence, cigarettes, uncomplicated
CPT/HCPCS: 70450; 71045; 80053; 85025; 96374; 96375; 99285; J1200; J1885; J7030

== ENCOUNTER 2023-06-16 20:23 | Emergency (ER) | payer BC, MEDICARE, SELFPAY ==
[2023-06-16 20:28] VITALS: BP 120/75; PULSE 97; RESP 16; TEMP 37; O2SAT 96; BMI 20.5
--- NOTE | 2023-06-16 21:20 | ED_ITS ---
HPI - Headache General: Chief Complaint: Headache Stated Complaint: Headaches Time Seen by Provider: 06/16/23 21:18 History of Present Illness: 62-year-old male patient comes in today for complaints of abnormal brain sensation. Patient reports it feels like he is having electrical shocks go throughout his brain. Patient was evaluated in the ER earlier and treated for a headache with evaluation of CT of the head and laboratory. Patient does have a history of peripheral neuropathy and chronic pain. Patient appears nontoxic. Patient walks without difficulty. CT and lab values from earlier were unremarkable. Review of Systems General: Reports: 10 or more systems reviewed and unremarkable except in HPI and below Neuro: Reports: headache(s) PFSH ED PFSH: Medical History Cannabis use disorder, mild, abuse Psychiatric care Nocturia BPH (benign prostatic hyperplasia) Gout GERD without esophagitis Peripheral polyneuropathy Surgical History Hx of cervical discectomy Status post right hip replacement Social History Smoking and tobacco/nicotine status: current every day tobacco/nicotine user cigarettes Packs smoked per day: 1 Alcohol intake: former Substance/Drug Use: former Adopted: No Caregiver/support person: No Marital status: Single Current occupation: staying with brother who has two steps with one handrail Physical Exam Const: COMMON NORMALS: alert Neck/C-Spine: COMMON NORMALS: full ROM Resp: COMMON NORMALS: normal respiratory effort Cardio: COMMON NORMALS: regular rate RATE: regular rate Extremity: COMMON NORMALS: normal to inspection and full ROM Neuro: SENSORIUM/ORIENTATION: Yes alert Skin: COMMON NORMALS: turgor normal GENERAL SKIN EXAM: turgor normal Course Vital Signs: Vital signs: Vital Signs Temperature 98.6 F 06/16/23 21:39 Pulse Rate 97 06/16/23 21:39 Respiratory Rate 16 06/16/23 21:39 Blood Pressure 120/75 06/16/23 21:39 Pulse Oximetry 96 06/16/23 21:39 Oxygen Delivery Me thod Room Air 06/16/23 20:28 MDM - Headache Medical Decision Making 62-year-old male patient comes in for today with complaints of head discomfort. Reports as not a true headache but more like electrical sensations through his brain. No focal neurodeficits are noted. Patient moves all extremities well. Patient ambulates without difficulty. Vital signs are normal. Differential diagnosis includes but not limited to anxiety, migraine headache, seizure episodes. Recommended follow-up with neurology for further evaluation and consideration of other exams. Patient reports understanding and agreed to plan. Case management was requested to assist patient with follow-up. No radiology studies performed this visit Discharge Plan Discharge Patient Disposition: Home Clinical Impression: Headache Qualifiers: Headache type: unspecified Headache chronicity pattern: chronic headache Intractability: intractable Qualified Code(s): R51.9 - Headache, unspecified Condition: Stable Prescriptions: No Action oxycodone 20 mg tablet 20 mg PO Q6H (DME) MORE balance brace to left See Rx Instructions .Route .MEDSUPPLY Qty: 1 0RF Rx Instructions: As directed by [facility] cyclobenzaprine 10 mg tablet 10 mg PO TID PRN (Reason: Pain) clopidogrel 75 mg tablet 75 mg PO DAILY sertraline 100 mg tablet 200 mg PO DAILY Discharge Orders: Discharge ED (Routine); Ordered 06/16/23 Ordered By: Alec Shaffer Referrals: Rosalia Rendon DO [Primary Care Provider] - Discharge Diet: Usual diet Discharge Activity: Increase activity as tolerated Patient Instructions: General Headache (ED) Activity Restrictions/Additional Instructions: Home and rest. Continue with routine care as directed. Follow-up with primary care for recheck. Case management will contact you regarding follow-up appointment with neurology for further evaluation of your headaches. 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
[2023-06-16 21:39] VITALS: BP 120/75; PULSE 97; RESP 16; TEMP 37; O2SAT 96
--- NOTE | 2023-06-19 10:23 | DCPLANNER ---
Message sent to Neurology for follow up
== END 2023-06-16 21:40 | disposition home or self-care (01) ==
PROVIDERS: Emergency Provider Nurse Practitioner Family; PCP Family Medicine
DX: R51.9 Headache, unspecified (principal); Z79.02 Long term (current) use of antithrombotics/antiplatelets; F17.210 Nicotine dependence, cigarettes, uncomplicated
CPT/HCPCS: 99281

== ENCOUNTER → 2023-09-10 07:40 | Outpatient (BNVA) | payer MEDICARE, BC, SELFPAY | PROVIDERS: PCP Family Medicine; Visit Provider Podiatrist Foot & Ankle Surgery | DX: G57.62 Lesion of plantar nerve, left lower limb (principal); M20.42 Other hammer toe(s) (acquired), left foot; M21.372 Foot drop, left foot; M20.32 Hallux varus (acquired), left foot; R09.89 Other specified symptoms and signs involving the circulatory and respiratory systems | CPT/HCPCS: 64455; J1100; J3301; J3490 ==

== ENCOUNTER → 2023-10-22 07:45 | Outpatient (BNVA) | payer MEDICARE, BC, SELFPAY | PROVIDERS: PCP Family Medicine; Visit Provider Podiatrist Foot & Ankle Surgery | DX: G57.62 Lesion of plantar nerve, left lower limb (principal); M20.42 Other hammer toe(s) (acquired), left foot; M21.372 Foot drop, left foot; M20.32 Hallux varus (acquired), left foot; R09.89 Other specified symptoms and signs involving the circulatory and respiratory systems | CPT/HCPCS: 64455; J1100; J3301; J3490 ==

== ENCOUNTER → 2023-10-23 08:04 | Outpatient (BNVA) | payer MEDICARE, BC, SELFPAY | PROVIDERS: PCP Family Medicine; Referring Provider Nurse Practitioner Family; Visit Provider Specialist | DX: R63.4 Abnormal weight loss (principal); F17.210 Nicotine dependence, cigarettes, uncomplicated; R51.9 Headache, unspecified; F12.20 Cannabis dependence, uncomplicated; F32.9 Major depressive disorder, single episode, unspecified; F41.9 Anxiety disorder, unspecified; M50.30 Other cervical disc degeneration, unspecified cervical region; M51.36 Other intervertebral disc degeneration, lumbar region; Z96.641 Presence of right artificial hip joint; M20.42 Other hammer toe(s) (acquired), left foot; F10.21 Alcohol dependence, in remission; G11.9 Hereditary ataxia, unspecified; Z68.1 Body mass index [BMI] 19.9 or less, adult | CPT/HCPCS: 99204; 99205 ==

== ENCOUNTER → 2023-11-29 10:51 | Outpatient (BNVA) | payer MEDICARE, BC, SELFPAY | PROVIDERS: PCP Family Medicine; Visit Provider Family Medicine | DX: E78.5 Hyperlipidemia, unspecified (principal); R73.09 Other abnormal glucose; I73.9 Peripheral vascular disease, unspecified | CPT/HCPCS: 80053; 80061; 83036; 84439; 84443; 85025 ==

== ENCOUNTER → 2023-12-26 07:45 | Outpatient (BNVA) | payer MEDICARE, BC, SELFPAY | PROVIDERS: PCP Family Medicine; Visit Provider Podiatrist Foot & Ankle Surgery | DX: M20.42 Other hammer toe(s) (acquired), left foot; M21.372 Foot drop, left foot; M20.32 Hallux varus (acquired), left foot; R09.89 Other specified symptoms and signs involving the circulatory and respiratory systems; G57.62 Lesion of plantar nerve, left lower limb | CPT/HCPCS: 99213 ==

== ENCOUNTER → 2024-01-11 12:40 | Outpatient (BNVA) | payer MEDICARE, BC, SELFPAY | PROVIDERS: PCP Family Medicine; Visit Provider Emergency Medicine | DX: Z96.89 Presence of other specified functional implants (principal); M25.862 Other specified joint disorders, left knee; Z98.890 Other specified postprocedural states; M25.562 Pain in left knee | CPT/HCPCS: 73562 ==

== ENCOUNTER 2024-01-14 15:45 | Outpatient (CLI) | payer MEDICARE, BC, SELFPAY ==
--- NOTE | 2024-01-14 16:00 | US_ITS ---
WS: [id number] ULTRASOUND SOFT TISSUES LEFT foot HISTORY: Rule Out Pavon's Neuroma COMPARISON: None available. TECHNIQUE: 2-D and color Doppler imaging is submitted. No soft tissue mass in the intertarsal region is identified. There is no fluid or bursitis. US/US soft tissue/extremity [id number] IMPRESSION: No intertarsal abnormality noted LEFT foot.
== END 2024-01-14 15:46 | disposition home or self-care (01) ==
LOC: RAD 15:46
PROVIDERS: PCP Family Medicine; Visit Provider Podiatrist Foot & Ankle Surgery
DX: G57.62 Lesion of plantar nerve, left lower limb (principal)
CPT/HCPCS: 76882

== ENCOUNTER 2024-03-17 09:03 | Outpatient (CLI) | payer MEDICARE, BC, SELFPAY ==
--- NOTE | 2024-03-17 09:05 | MR_ITS ---
WS: [id number] MRI CERVICAL SPINE NONCONTRAST TECHNIQUE: Sagittal T1, T2 and STIR imaging. Axial T2, gradient, and fiesta imaging. CLINICAL INFORMATION: DEGENERATIVE DISC DISEASE COMPARISON: MRI 2017 FINDINGS: Postoperative changes ACDF C3-C6 with interbody fusion grafts. This is new compared to previous. Spin al canal has been decompressed. Small amount of chronic myelomalacia in the cervical cord unchanged. C2-C3: Mild facet arthropathy. Spinal canal and foramen are patent. C3-C4: Mild facet arthropathy. Spinal canal and foramen are patent. C4-C5: Mild facet arthropathy. Mild LEFT and no significant RIGHT foraminal narrowing. Spinal canal i s patent. C5-C6: Postoperative changes ACDF. Severe bilateral bony foraminal narrowing. Mild residual central c anal stenosis. C6-C7: Shallow central disc protrusion with indentation cervical cord eccentric to the LEFT. Mild yisel tral canal stenosis. Severe LEFT and mild RIGHT bony foraminal narrowing. Mild facet arthropathy. C7-T1: Mild LEFT foraminal narrowing. Spinal canal and RIGHT foramen are patent. Visualized brain stem structures: Normal. Prevertebral soft tissues: Normal. MR/MR cervical spin wo con* [id number] IMPRESSION: 1. Postoperative changes ACDF C3-C6 with interbody fusion grafts. Spinal canal has been decompressed. 2. Mild central canal stenosis C6-C7 and C7-T1 with slight indentation on the cervical cord worse at C6-7. 3. Severe bilateral C5-C6 and LEFT C6-7 bony foraminal narrowing.
== END 2024-03-17 09:04 | disposition home or self-care (01) ==
LOC: RAD 09:04
PROVIDERS: PCP Family Medicine; Visit Provider General Practice
DX: M50.30 Other cervical disc degeneration, unspecified cervical region (principal); Z98.890 Other specified postprocedural states; M48.02 Spinal stenosis, cervical region; M48.03 Spinal stenosis, cervicothoracic region; G95.89 Other specified diseases of spinal cord; M47.812 Spondylosis without myelopathy or radiculopathy, cervical region; R93.89 Abnormal findings on diagnostic imaging of other specified body structures; Z98.1 Arthrodesis status
CPT/HCPCS: 72141

== ENCOUNTER → 2024-04-09 08:51 | Outpatient (BNVA) | payer MEDICARE, BC, SELFPAY | PROVIDERS: PCP Family Medicine; Visit Provider Podiatrist Foot & Ankle Surgery | DX: G57.62 Lesion of plantar nerve, left lower limb (principal); M20.42 Other hammer toe(s) (acquired), left foot; M21.372 Foot drop, left foot; M20.32 Hallux varus (acquired), left foot; R09.89 Other specified symptoms and signs involving the circulatory and respiratory systems | CPT/HCPCS: 99213 ==

== ENCOUNTER 2024-04-11 11:44 | Outpatient (CLI) | payer MEDICARE, BC, SELFPAY ==
--- NOTE | 2024-04-11 12:15 | MR_ITS ---
WS: [id number] MRI LEFT FOOT WITHOUT CONTRAST. COMPARISON: None Multiplanar, multisequence imaging is performed without contrast. Significant amount of edema along the plantar surface of the foot surrounding the central metatarsals . Largest amount of edema surrounds the second and third metatarsals. The metatarsals themselves do n ot contain edema and no fracture is identified. There is no well localized fluid collection. The largest amount of edema surrounds the flexor digitorum longus and brevis tendons and lumbrical mu scles. No tendon tears are identified. Tarsometatarsal alignment is normal. Normal Lisfranc ligament. Distal Achilles tendon is normal. Normal plantar aponeurosis. 11 mm calcaneal spur. Numerous hammerto e contractures. MR/MR foot LT wo con* [id number] IMPRESSION: 1. Significant soft tissue edema along the plantar surface of the foot surround ing the second and third metatarsals. Edema surrounds the flexor digitorum long us and brevis tendons and lumbrical muscles although no tears are identified. 2. No fracture or marrow edema. No stress fracture.
== END 2024-04-11 11:45 | disposition home or self-care (01) ==
LOC: RAD 11:45
PROVIDERS: PCP Family Medicine; Visit Provider Podiatrist Foot & Ankle Surgery
DX: G57.62 Lesion of plantar nerve, left lower limb (principal); R93.6 Abnormal findings on diagnostic imaging of limbs; M77.32 Calcaneal spur, left foot; M24.575 Contracture, left foot
CPT/HCPCS: 73718

== ENCOUNTER → 2024-05-15 14:21 | Outpatient (BNVA) | payer MEDICARE, BC, SELFPAY | PROVIDERS: PCP Family Medicine; Visit Provider Orthopaedic Surgery | DX: M54.50 Low back pain, unspecified (principal); G89.29 Other chronic pain; M54.2 Cervicalgia | CPT/HCPCS: 72050; 72110; 99203 ==

== ENCOUNTER → 2024-06-11 07:51 | Outpatient (BNVA) | payer MEDICARE, BC, SELFPAY | PROVIDERS: PCP Family Medicine; Visit Provider Podiatrist Foot & Ankle Surgery | DX: M20.42 Other hammer toe(s) (acquired), left foot (principal); M21.372 Foot drop, left foot; M20.32 Hallux varus (acquired), left foot; R09.89 Other specified symptoms and signs involving the circulatory and respiratory systems; G57.62 Lesion of plantar nerve, left lower limb | CPT/HCPCS: 99213 ==

== ENCOUNTER 2024-07-14 12:22 | Outpatient (RCR) | payer MEDICARE, BC, SELFPAY | END 2024-08-09 23:59 | disposition home or self-care (01) | LOC: SPT 12:22 | PROVIDERS: Visit Provider Family Medicine | DX: M54.50 Low back pain, unspecified (principal); G89.29 Other chronic pain | CPT/HCPCS: 97110; 97161 ==

== ENCOUNTER 2024-07-22 14:29 | Outpatient (CLI) | payer MEDICARE, BC, SELFPAY | END 2024-07-22 14:30 | disposition home or self-care (01) | LOC: SPT 14:30 | PROVIDERS: Visit Provider Podiatrist Foot & Ankle Surgery | DX: Z46.89 Encounter for fitting and adjustment of other specified devices (principal); M20.42 Other hammer toe(s) (acquired), left foot; M21.372 Foot drop, left foot; M20.32 Hallux varus (acquired), left foot; G57.62 Lesion of plantar nerve, left lower limb | CPT/HCPCS: L3030 ==

== ENCOUNTER 2024-08-10 05:00 | Outpatient (RCR) | payer MEDICARE, BC, SELFPAY | END 2024-09-08 23:59 | disposition home or self-care (01) | LOC: SPT 05:00 | PROVIDERS: Visit Provider Family Medicine | DX: M54.50 Low back pain, unspecified (principal); G89.29 Other chronic pain | CPT/HCPCS: 97110 ==

== ENCOUNTER → 2024-08-14 14:59 | Outpatient (BNVA) | payer MEDICARE, BC, SELFPAY | PROVIDERS: Visit Provider Orthopaedic Surgery | DX: M48.062 Spinal stenosis, lumbar region with neurogenic claudication (principal) | CPT/HCPCS: 99213 ==

== ENCOUNTER 2024-09-09 05:00 | Outpatient (RCR) | payer MEDICARE, BC, SELFPAY | END 2024-09-22 09:39 | disposition home or self-care (01) | LOC: SPT 05:00 | PROVIDERS: Visit Provider Family Medicine | DX: M54.50 Low back pain, unspecified (principal); G89.29 Other chronic pain | CPT/HCPCS: 97110 ==

== ENCOUNTER → 2024-10-30 11:41 | Outpatient (BNVA) | payer MEDICARE, OTHER, SELFPAY | PROVIDERS: PCP Family Medicine; Visit Provider Family Medicine | DX: Z13.6 Encounter for screening for cardiovascular disorders (principal) | CPT/HCPCS: 80053; 80061; 85025 ==